=== PATIENT | male | born 1940 | race Caucasian/White ===

== ENCOUNTER 2016-08-01 15:33 | Inpatient (IN) | payer OTHER, MEDICARE ==
[~2016-08-01] VITALS: Ht 175.3 cm; Wt 87.0 kg
[~2016-08-01 15:33] MED LIST changes: -BUME1TAB PO; -CARV6.252 PO; -CMD5 PO; -FINA5TAB PO; -LEVO112T2 PO; -NEXAVAR PO; -ONDA4TAB46 PO; -ONDA4TAB65 PO; -POTA-74 PO; -POTA1POW PO; -SPIR25TA PO; -WARF5TAB90 PO
[2016-08-01] MEDS ORDERED: METHYLPREDNISOLONE IV 50 MG in SYRINGE 0 ML IV STA (15:51)
[2016-08-01] MEDS ORDERED: DiphenhydrAMINE HCL 50 MG/ML VIAL IV STA (15:51)
[2016-08-01] MEDS ORDERED: OPTIRAY 320 IV PRN (16:00)
[2016-08-01 16:08] LABS: BASO % 0.7 %; BASO ABS # 0.05 K/uL (0-0.2); COMPLETE YES; HEMATOCRIT 43.8 % (42-52); IG% 0.1 %; LYMPH % 19.9 %; MEAN CELL VOLUME 91.1 fL (80-100); MEAN CORPUSCULAR HEMOGLOBIN 32.2 pg (25-34); MEAN CORPUSCULAR HGB CONC 35.4 g/dl (32-36); MEAN PLATELET VOLUME 10.5 fL (7.4-10.4); NEUT % 58.3 %; PLATELET COUNT 192 K/uL (130-400); RED BLOOD COUNT 4.81 M/uL (4.7-6.1); WHITE BLOOD COUNT 7.02 K/uL (4.8-10.8)
--- NOTE | 2016-08-01 16:16 | DIAGNOSTIC IMAGING REPORT ---
CHEST ONE VIEW PORTABLE CLINICAL HISTORY: Atypical chest pain COMPARISON STUDY: 10/11/2013 FINDINGS: The heart is normal in size. There is no failure. There is a small right pleural effusion with associated right basilar airspace opacities likely atelectatic. No left pleural effusion is visualized. There is no pneumothorax.[ IMPRESSION: Interval development of a small right pleural effusion with associated right basilar airspace opacities, likely atelectatic. Electronically signed by: Felix Mckeon M.D. 08/01/2016 4:14 PM Dictated Date/Time: 08/01/2016 4:14 PM
[2016-08-01] MEDS ORDERED: NEXAVAR PO (16:23)
[2016-08-01 16:38] LABS: BLOOD UREA NITROGEN 14 mg/dl (7-18); BUN/CREATININE RATIO 15.5 (10-20); CALCIUM 8.4 mg/dl (8.5-10.1); CARBON DIOXIDE 27 mmol/L (21-32); CHLORIDE 102 mmol/L (98-107); CREATININE 0.91 mg/dl (0.60-1.40); GLUCOSE 134 mg/dl (70-99); POTASSIUM 3.5 mmol/L (3.5-5.1); SODIUM 139 mmol/L (136-145)
[2016-08-01 16:43] LABS: CKMB/CK RATIO 1.4 (0-3.0)
--- NOTE | 2016-08-01 18:06 | DIAGNOSTIC IMAGING REPORT ---
CHEST CTA for PULMONARY ARTERIES CT DOSE: HISTORY: Positive d-dimer. Short of breath. TECHNIQUE: Multiaxial CT images of the chest were performed following the intravenous administration of contrast to evaluate the pulmonary arteries. Maximal intensity projection images were also obtained. COMPARISON STUDY: Abdomen and pelvis CT 04/08/2026. FINDINGS: Normal caliber thoracic aorta with no evidence for dissection. The heart is normal in size. Trace pericardial fluid. Small to moderate right pleural effusion which is increased in size. There is a filling defect at the branch point of a left lower lobe segmental/subsegmental pulmonary artery consistent with a pulmonary embolus. The main pulmonary arteries are patent. There is also a few subsegmental pulmonary emboli within the right lower lobe. No hilar lymphadenopathy. A few prominent mediastinal lymph nodes which measure up to 8 mm in short axis diameter. Consolidation at the base of the right lower lobe favors compressive atelectasis from the pleural effusion. No pneumothorax. The left lung is clear. IMPRESSION: 1. Bilateral lower lobe pulmonary emboli as described above. 2. Jnwni-re-uioqiity right pleural effusion has increased in size. 3. Right lower lobe consolidation favors compressive atelectasis from the pleural effusion. 4. Please refer to the same day abdominal CT for further evaluation of the abdominal structures. Electronically signed by: Omi Rivera M.D. 08/01/2016 6:05 PM Dictated Date/Time: 08/01/2016 5:58 PM
[2016-08-01 19:54] LABS: PARTIAL THROMBOPLASTIN RATIO 1.2
[2016-08-01] MEDS ORDERED: HEPARIN IV LOW DOSE NO BOLUS STA (21:10)
[2016-08-01] MEDS ORDERED: BACLOFEN 10 MG TAB PO PRN (21:15)
[2016-08-01] MEDS ORDERED: ACETAMINOPHEN 325 MG TAB PO PRN (21:15)
[2016-08-01] MEDS ORDERED: LORAZEPAM 2 MG/ML 1 ML VIAL IV PRN (21:15)
[2016-08-01] MEDS ORDERED: HEPARIN IV LOW DOSE NO BOLUS SCH (21:15)
[2016-08-01] MEDS ORDERED: TRAMADOL HCL 50 MG TAB PO PRN (21:15)
[2016-08-01] MEDS ORDERED: MoRPHine SULFATE 4 MG/ML 1 ML CARP\\VIAL IV PRN (21:15)
[2016-08-01] MEDS ORDERED: NSS + 20MEQ KCL 1000ML 1,000 ML IV ONE ×2 (21:15→22:00)
[2016-08-01] MEDS ORDERED: HEPARIN 25000 UNIT/500 ML D5W ONE (21:21)
--- NOTE | 2016-08-01 22:11 | DIAGNOSTIC IMAGING REPORT ---
BILATERAL LOWER EXTREMITY VENOUS DOPPLER HISTORY: Bilateral leg pain COMPARISON STUDY: None. FINDINGS: There is slow flow throughout the bilateral lower extremity venous systems. No DVT within the right lower extremity. Linear echogenic stranding within the proximal left superficial femoral vein consistent with chronic deep vein thrombosis. This is nonocclusive. Remaining portions of the left lower extremity venous system are patent. IMPRESSION: 1. No DVT within the right lower extremity. 2. Linear echogenic stranding within the proximal left superficial femoral vein consistent with a chronic deep vein thrombosis. No acute DVT seen within the left lower extremity. Electronically signed by: Omi Rivera M.D. 08/01/2016 10:10 PM Dictated Date/Time: 08/01/2016 10:08 PM
--- NOTE | 2016-08-01 22:39 | EMERGENCY ROOM VISIT NOTE ---
History Report prepared by Aleksandar: Geraldine Joseph Under the Supervision of: Dr. Isidro Mcleod D.O. First contact with patient: 15:39 Chief Complaint: REFERRED BY DOCTOR Stated Complaint: MAY HAVE BLOOD CLOT IN LUNG History of Present Illness The patient is a 76 year old male who presents to the Emergency Room per PCP referral to be evaluated for an elevated D-dimer today. The patient notes that he has been feeling short of breath with exertion over the past 3 weeks. He feels well at rest. The patient is able to walk short distances without too much difficulty but notes he has difficulty breathing performing tasks like leaning over to tie his shoes. He is able to sleep laying flat. He also complains some increased leg swelling that he notices when he is wearing socks. Today, the patient had blood work in Dr. You's office with hematology/ oncology. He follows up with her because he has liver cancer and is currently on chemotherapy pills daily. This afternoon he was referred to the emergency room because his D-dimer was 1400. He is not on any blood thinners. No history of diabetes or heart disease. He does note a history of hypertension. He does not have a history of blood clots. The patient notes that he has had diarrhea which is a side effect of his chemotherapy. Pt denies headache, change in vision, fevers, chest pain with breathing, nausea, vomiting, diarrhea, pain with urination, and melena. Source of History: patient Onset: today Position: other (global) Symptom Intensity: D-dimer 1400 Quality: other (elevated D-dimer) Timing: constant Associated Symptoms: + SOB, No chest pain, No diarrhea, No fevers, No headache, No melena, No nausea, No urinary symptoms, No vomiting Note: Other symptoms: minimal leg swelling with socks Review of Systems See HPI for pertinent positives & negatives. A total of 10 systems reviewed and were otherwise negative. Past Medical & Surgical Medical Problems: (1) BPH (benign prostatic hyperplasia) (2) Dyslipidemia (3) Hemochromatosis (4) Hepatocellular carcinoma (5) HTN (hypertension) (6) Hypothyroidism (7) Pulmonary embolism Surgical Problems: (1) History of left knee replacement (2) History of resection of liver (3) History of total right knee replacement (4) S/P cataract surgery (5) S/P tonsillectomy Family History Cancer Hypertension Kidney stones Lung disease Social History Smoking Status: Former Smoker Alcohol Use: none Drug Use: none Marital Status: Housing Status: lives with family Occupation Status: retired Current/Historical Medications Scheduled Amlodipine (Norvasc), 5 MG PO BID Carvedilol (Coreg), 6.25 MG PO BID Finasteride (Proscar), 5 MG PO DAILY Levothyroxine Sodium (Synthroid), 112 MCG PO DAILY Lisinopril/Hctz (Zestoretic 20MG/12.5MG), 1 TABS PO DAILY Tamsulosin Hcl (Flomax), 0.4 MG PO DAILY [Nexavar], 400 MG PO BID Scheduled PRN Baclofen (Lioresal), 10 MG PO Q8 PRN for hiccups Allergies Coded Allergies: Iodinated Diagnostic Agents (Verified Allergy, Unknown, HIVES, 08/01/16) Physical Exam Vital Signs Date Time Temp Pulse Resp B/P Pulse Ox O2 Delivery O2 Flow Rate FiO2 08/01/16 21:05 88 16 162/85 93 Room Air 08/01/16 18:30 76 18 144/95 93 Room Air 08/01/16 17:31 76 25 165/98 93 Room Air 08/01/16 15:56 83 08/01/16 15:35 36.6 91 18 146/89 95 Room Air Physical Exam GENERAL: Sitting up in bed, alert, well appearing, well nourished, no distress, non-toxic EYE EXAM: normal conjunctiva OROPHARYNX: no exudate, no erythema, lips, buccal mucosa, and tongue normal and mucous membranes are moist NECK: supple, no nuchal rigidity, no adenopathy, non-tender LUNGS: Clear to auscultation. Normal chest wall mechanics HEART: no murmurs, S1 normal and S2 normal ABDOMEN: abdomen soft, non-tender, normo-active bowel sounds, palpable mass in the right upper quadrant, no rebound or guarding, large old incision over the right upper quadrant. BACK: Back is symmetrical on inspection and there is no deformity, no midline tenderness, no CVA tenderness. SKIN: no rashes and no bruising UPPER EXTREMITIES: upper extremities are grossly normal. LOWER EXTREMITIES: No pitting edema. Calves equal bilaterally. NEURO EXAM: Normal sensorium, cranial nerves II-XII grossly intact, normal speech, no gross weakness of arms, no gross weakness of legs. Medical Decision & Procedures ER Provider Diagnostic Interpretation: Results have been interpreted by the radiologist and reviewed by me. CHEST ONE VIEW PORTABLE CLINICAL HISTORY: Atypical chest pain COMPARISON STUDY: 10/11/2013 FINDINGS: The heart is normal in size. There is no failure. There is a small right pleural effusion with associated right basilar airspace opacities likely atelectatic. No left pleural effusion is visualized. There is no pneumothorax.[ IMPRESSION: Interval development of a small right pleural effusion with associated right basilar airspace opacities, likely atelectatic. Electronically signed by: Felix Mckeon M.D. 08/01/2016 4:14 PM Dictated Date/Time: 08/01/2016 4:14 PM CHEST CTA for PULMONARY ARTERIES CT DOSE: HISTORY: Positive d-dimer. Short of breath. TECHNIQUE: Multiaxial CT images of the chest were performed following the intravenous administration of contrast to evaluate the pulmonary arteries. Maximal intensity projection images were also obtained. COMPARISON STUDY: Abdomen and pelvis CT 04/08/2026. FINDINGS: Normal caliber thoracic aorta with no evidence for dissection. The heart is normal in size. Trace pericardial fluid. Small to moderate right pleural effusion which is increased in size. There is a filling defect at the branch point of a left lower lobe segmental/subsegmental pulmonary artery consistent with a pulmonary embolus. The main pulmonary arteries are patent. There is also a few subsegmental pulmonary emboli within the right lower lobe. No hilar lymphadenopathy. A few prominent mediastinal lymph nodes which measure up to 8 mm in short axis diameter. Consolidation at the base of the right lower lobe favors compressive atelectasis from the pleural effusion. No pneumothorax. The left lung is clear. IMPRESSION: 1. Bilateral lower lobe pulmonary emboli as described above. 2. Ycaxk-km-fyrjqksu right pleural effusion has increased in size. 3. Right lower lobe consolidation favors compressive atelectasis from the pleural effusion. 4. Please refer to the same day abdominal CT for further evaluation of the abdominal structures. Electronically signed by: Omi Rivera M.D. 08/01/2016 6:05 PM Dictated Date/Time: 08/01/2016 5:58 PM Laboratory Results 08/01/16 15:45 Red Blood Count 4.81, Mean Corpuscular Volume 91.1, Mean Corpuscular Hemoglobin 32.2, Mean Corpuscular Hemoglobin Concent 35.4, Mean Platelet Volume 10.5, Neutrophils (%) (Auto) 58.3, Lymphocytes (%) (Auto) 19.9, Monocytes (%) (Auto) 10.0, Eosinophils (%) (Auto) 11.0, Basophils (%) (Auto) 0.7, Neutrophils # (Auto ) 4.09, Lymphocytes # (Auto) 1.40, Monocytes # (Auto) 0.70, Eosinophils # (Auto ) 0.77, Basophils # (Auto) 0.05 08/01/16 15:45 Test 08/01/16 15:45 White Blood Count 7.02 K/uL (4.8-10.8) Red Blood Count 4.81 M/uL (4.7-6.1) Hemoglobin 15.5 g/dL (14.0-18.0) Hematocrit 43.8 % (42-52) Mean Corpuscular Volume 91.1 fL (80-100) Mean Corpuscular Hemoglobin 32.2 pg (25-34) Mean Corpuscular Hemoglobin Concent 35.4 g/dl (32-36) Platelet Count 192 K/uL (130-400) Mean Platelet Volume 10.5 fL (7.4-10.4) Neutrophils (%) (Auto) 58.3 % Lymphocytes (%) (Auto) 19.9 % Monocytes (%) (Auto) 10.0 % Eosinophils (%) (Auto) 11.0 % Basophils (%) (Auto) 0.7 % Neutrophils # (Auto) 4.09 K/uL (1.4-6.5) Lymphocytes # (Auto) 1.40 K/uL (1.2-3.4) Monocytes # (Auto) 0.70 K/uL (0.11-0.59) Eosinophils # (Auto) 0.77 K/uL (0-0.5) Basophils # (Auto) 0.05 K/uL (0-0.2) RDW Standard Deviation 47.2 fL (36.4-46.3) RDW Coefficient of Variation 14.1 % (11.5-14.5) Immature Granulocyte % (Auto) 0.1 % Immature Granulocyte # (Auto) 0.01 K/uL (0.00-0.02) Activated Partial Thromboplast Time 32.4 SECONDS (21.0-31.0) Partial Thromboplastin Ratio 1.2 Anion Gap 10.0 mmol/L (3-11) Est Creatinine Clear Calc Drug Dose 80.9 ml/min Estimated GFR () 95.9 Estimated GFR (Non- 82.7 BUN/Creatinine Ratio 15.5 (10-20) Calcium Level 8.4 mg/dl (8.5-10.1) Magnesium Level 2.0 mg/dl (1.8-2.4) Total Bilirubin 1.3 mg/dl (0.2-1) Direct Bilirubin 0.5 mg/dl (0-0.2) Aspartate Amino Transf (AST/SGOT) 112 U/L (15-37) Alanine Aminotransferase (ALT/SGPT) 43 U/L (12-78) Alkaline Phosphatase 190 U/L (45-117) Total Creatine Kinase 139 U/L (39-308) Creatine Kinase MB 2.0 ng/ml (0.5-3.6) Creatine Kinase MB Ratio 1.4 (0-3.0) Troponin I < 0.015 ng/ml (0-0.045) Total Protein 7.4 gm/dl (6.4-8.2) Albumin 3.2 gm/dl (3.4-5.0) Laboratory results per my review. Medications Administered Medications (Trade) Dose Ordered Sig/Rad Route Start Time Stop Time Status Last Admin Dose Admin Methylprednisolone Sodium Succinate/ Syringe (Solu-Medrol IV/ Syringe) 0.8 ml @ 1.5 mls/min NOW STAT IV 08/01/16 15:51 08/01/16 15:54 DC 08/01/16 16:09 1.5 MLS/MIN Diphenhydramine HCl (Benadryl Inj) 25 mg NOW STAT IV 08/01/16 15:51 08/01/16 15:54 DC 08/01/16 16:09 25 MG ECG Indication: SOB/dyspnea Rate (beats per minute): 85 Rhythm: sinus rhythm Findings: Q waves (Septal), left axis deviation Comparison ECG Date: 04/08/16 Change: no significant change ED Course ED COURSE: Vital signs were reviewed and showed normal vitals. The patients medical record was reviewed The above diagnostic studies were performed and reviewed. ED treatments and interventions as stated above. 1543: The patient was evaluated in room A4. A complete history and physical examination was performed. 1551: Ordered Benadryl Inj 25 mg IV, Methylprednisolone Sodium Succinate 50 mg/ Syringe 0.8 ml @ 1.5 mls/min IV. 1650: I reassessed the patient and updated him on results so far. 183: Upon reevaluation, the patient is resting comfortably.I discussed my findings with the patient and he understands and agrees with the treatment plan. Based on the patients age, coexisting illnesses, exam and lab findings the decision to treat as an inpatient was made. The patient remained stable while under my care. The patient will be evaluated for further management. 184: I discussed the case with Dr. Marjan Trujillo. 1847: I discussed the case with Dr. Gunn - Vascular Surgery. Medical Decision Differential diagnoses includes but is not limited to pneumonia, bronchitis, COPD/Asthma exacerbation, pneumothorax, pulmonary embolism, congestive heart failure, acute coronary syndrome Patient is a 76-year-old male who presents the ER referred in by Dr. You for a CT PE with a positive d-dimer and shortness of breath. Patient has not complaints at this time. He does have known hepatocellular carcinoma. CT PE was performed and did show PEs and the CT of his abdomen was performed as well as he was going to have this done tomorrow as an outpatient. CT of the abdomen showed a large liver mass that may be eroding into the IVC. It also showed a resolved which are personnel hematoma. I discussed the case with Dr. Gunn as with that retroperitoneal hematoma although it resolved would put him at a higher risk for bleeding. Velia said that since there is possible involvement of the IVC he would not place a filter. I then discussed the case with internal medicine again for admission. I did not put him on any anti- correlation at this time as that retroperitoneal bleed although it resolved would put him at a high risk. Patient was in its internal medicine for PEs along with known liver cancer with possible involvement of the IVC. Consults Time Called: 1831 Consulting Physician: Dr. Marjan Dunne Hospitalist Returned Call: [phone] I discussed the case with him. Additional Consults: Time Called: 1845 Consulted Physician: Dr. Gunn - Vascular Surgery Returned Call: [phone] Additional Comments: I discussed the case with him. Impression Primary Impression: Pulmonary emboli Additional Impressions: Resolved retroperitoneal hematoma Liver cancer Scribe Attestation The scribe's documentation has been prepared under my direction and personally reviewed by me in its entirety. I confirm that the note above accurately reflects all work, treatment, procedures, and medical decision making performed by me. Departure Information Dispostion Being Evaluated By Hospitalist Patient Instructions My [facility] Problem Qualifiers Primary Impression: Pulmonary emboli Pulmonary embolism type: other Chronicity: acute Acute cor pulmonale presence: without acute cor pulmonale Qualified Codes: I26.99 - Other pulmonary embolism without acute cor pulmonale Additional Impressions: Liver cancer Liver malignancy type: hepatocellular carcinoma Qualified Codes: C22.0 - Liver cell carcinoma
[2016-08-01] MEDS ORDERED: LORAZEPAM INJ 0.5 MG in SYRINGE 0.75 ML IV PRN (23:00)
[2016-08-01 23:44] VITALS: BP 147/88; PULSE 86; TEMP 36.6; O2SAT 92; Ht 175.3 cm; Wt 87.0 kg
[2016-08-02] VITALS (7 sets, daily range): BP systolic 126–171; BP diastolic 74–88; PULSE 63–74; TEMP 36.4–36.7; O2SAT 92–95
--- NOTE | 2016-08-02 00:28 | HISTORY & PHYSICAL EXAMINATION ---
DATE OF ADMISSION: 08/01/2016 PRIMARY CARE DOCTOR: Dr. Miller. CHIEF COMPLAINT: Shortness of breath. HISTORY OF PRESENT ILLNESS: Medical history significant for metastatic hepatocellular carcinoma sp partial hepatic lobectomy 08/[address] [facility], ongoing chemotherapy, hemochromatosis, hypertension, past tobacco abuse, arthritis, history of retroperitoneal hemorrhage. Recent confinement 03/2016 for retroperitoneal hemorrhage. Hg improved wo intervention. Unclear etiology or source at that time. Patient subsequently discharged home. The last few weeks patient noted increasing shortness of breath, occasional pleuritic chest discomfort and leg discomfort. No fever, no chills, no cough symptoms. The patient sent to the Emergency Room. MEDICAL HISTORY: As above. His oncologist is Dr. You, [facility] Oncology. Recent imaging from the office 06/2016, CT showed metastatic hepatocellular carcinoma throughout the liver, decreasing size of mixed density right suprarenal mass, possibly representing liver mets, hemorrhagic adrenal mass, hemorrhagic retroperitoneal implant inseparable from right kidney, microscopic invasion not excluded. Metastatic implants anterior abdominal wall and subcutaneous tissue, increasing size. Hepatic veins and intrahepatic IVC are not well seen with mass effect from adjacent tumors with invasion of vessels. SURGERIES: Liver resection, knee replacement, cataract surgery, tonsillectomy. HOME MEDICATIONS: Include triamcinolone, Zofran, amlodipine, Nexavar, diphenhydramine, baclofen, lisinopril/HCTZ, levothyroxine, finasteride, carvedilol, tamsulosin. ALLERGIES: IV DYE. FAMILY HISTORY: Hypertension. PERSONAL AND SOCIAL HISTORY: Past tobaccos use. No chronic intake of alcohol. 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 REVIEW OF SYSTEMS: As per HPI, all others negative. PHYSICAL EXAMINATION: VITAL SIGNS: Blood pressure was noted to be 146/89, pulse rate 90, RR 18, temp 36.6, sats 98 on room air. GENERAL: Noted to be slightly anxious, no respiratory distress. SKIN: Normal color. HEENT: [place] palpebral conjunctivae. Dry mucosa. Partial alopecia. NECK: No JVD. Supple. CHEST: Clear to auscultation. HEART: Regular rate and rhythm. ABDOMEN: Soft. EXTREMITIES: No edema, no tenderness. NEUROLOGIC: No gross focality. LABORATORY DATA: Hemoglobin 15.5, hematocrit 43.2, white cell count 7, platelets 192. Sodium 139, potassium 3.5, chloride 102, CO2 27, BUN 40, creatinine 0.9, glucose 134. abn ddimer trop 0 CTA showed bilateral lower lobe pulmonary emboli, small to moderate right pleural effusion. Venous Dopplers showed right lower extremity, chronic DVT. CT abdomen and pelvis, liver completely replaced by multiple hypervascular hepatic masses consistent with hepatocellular carcinoma, dominant hepatic mass within right hepatic lobe resulting in severe narrowing with possible invasion into the intrahepatic IVC, multiple new soft tissue nodules right anterior abdominal wall consistent with metastatic foci, significant improvement and resolution of right perinephric retroperitoneal hemorrhage. ASSESSMENT: 1. Acute pulmonary embolism likely related to malignancy hx metastatic hepatocellular carcinoma sp surgery ongoing chemotherapy. some evidence of disease progression on recent imaging 2. hypertension, stable. 3. Hx hemochromatosis. 4. History of right retroperitoneal hemorrhage. (03/2016) In retrospect, bleed was 2 to poss R suprarenal/adrenal mets on review of recent outpx CT Hg currently WNL. 5. Past tobacco abuse. PLAN: PCU. low dose IV heparin for now initiate Coumadin bridge tx w/ goal INR 2-3 tomorrow if Hg stable I sought the advice of Dr. Celina Tanner (General Surgery) and Dr. Donovan ( Urology) over the phone w/ reference to anticoagulation and px's hx of retroperitoneal bleed. Drs. Tanner and Venus saw px in consultation during his confinement last year. They both agree that anticoagulation is necessary given px current's circumstances and should not be precluded by bleed hx. Patient and family made have been made aware of the need for anticoagulation and potential for re-bleed. Px and family understand and accept risks. DVT prophylaxis : IV Heparin-Coumadin (INR goal 2-3) bridge tx. Full code. MTDD
[2016-08-02 03:54] LABS: BASO % 0.3 %; BASO ABS # 0.01 K/uL (0-0.2); COMPLETE YES; HEMATOCRIT 39.5 % (42-52); IG% 0.3 %; LYMPH % 28.8 %; LYMPH ABS # 1.04 K/uL (1.2-3.4); MEAN CELL VOLUME 90.2 fL (80-100); MEAN CORPUSCULAR HEMOGLOBIN 31.5 pg (25-34); MEAN CORPUSCULAR HGB CONC 34.9 g/dl (32-36); MEAN PLATELET VOLUME 10.7 fL (7.4-10.4); MONO % 5.5 %; NEUT % 65.1 %; PLATELET COUNT 172 K/uL (130-400); RED BLOOD COUNT 4.38 M/uL (4.7-6.1); WHITE BLOOD COUNT 3.61 K/uL (4.8-10.8)
[2016-08-02 04:12] LABS: BLOOD UREA NITROGEN 14 mg/dl (7-18); CALCIUM 8.2 mg/dl (8.5-10.1); CARBON DIOXIDE 27 mmol/L (21-32); CHLORIDE 104 mmol/L (98-107); CREATININE 0.76 mg/dl (0.60-1.40); GLUCOSE 143 mg/dl (70-99); POTASSIUM 3.4 mmol/L (3.5-5.1); SODIUM 140 mmol/L (136-145)
[2016-08-02] MEDS ORDERED: POTASSIUM CHLORIDE 10 MEQ TABCR PO STA (04:35)
[2016-08-02] MEDS: LEVOTHYROXINE 112 MCG TAB PO SCH (05:56)
[2016-08-02 06:00] LABS: MAGNESIUM 1.9 mg/dl (1.8-2.4)
[2016-08-02] MEDS ORDERED: LISINOPRIL 20 MG TAB PO SCH (09:00)
[2016-08-02] MEDS: CARVEDILOL 6.25 MG TAB PO SCH ×2 (09:16→21:07)
[2016-08-02] MEDS: TAMSULOSIN HCL 0.4 MG CAP PO SCH (09:16)
[2016-08-02] MEDS: AMLODIPINE BESYLATE 5 MG TAB PO SCH ×2 (09:17→21:07)
[2016-08-02] MEDS: FINASTERIDE 5 MG TAB PO SCH (09:17)
[2016-08-02 09:53] LABS: INR 1.2 (0.9-1.1); PROTHROMBIN TIME (PATIENT) 13.2 SECONDS (9.0-12.0)
--- NOTE | 2016-08-02 11:28 | Hospitalist Progress Note ---
Hospitalist Progress Note Date of Service Aug 02, 2016. Subjective Patient seen and examined. Reports he is feeling well. Ambulating in his room without difficulty. He denies chest pain and shortness of breath. No abdominal pain or nausea. Objective Vital Signs Date Time Temp Pulse Resp B/P Pulse Ox O2 Delivery O2 Flow Rate FiO2 08/02/16 08:10 Room Air 08/02/16 07:33 36.6 65 16 171/88 95 Room Air 08/02/16 04:54 36.4 72 18 147/82 94 Room Air 08/02/16 04:00 Room Air 08/01/16 23:44 36.6 86 19 147/88 92 Room Air 08/01/16 21:05 88 16 162/85 93 Room Air 08/01/16 18:30 76 18 144/95 93 Room Air 08/01/16 17:31 76 25 165/98 93 Room Air 08/01/16 15:56 83 08/01/16 15:35 36.6 91 18 146/89 95 Room Air Physical Exam General Appearance: no apparent distress Eyes: normal inspection ENT: hearing grossly normal Neck: supple, no JVD Respiratory/Chest: no respiratory distress, + decreased breath sounds Cardiovascular: regular rate, rhythm, no edema Abdomen: normal bowel sounds, non tender, + distended (softly) Neurologic/Psychiatric: no motor/sensory deficits, alert, normal mood/affect, oriented x 3 Skin: normal color, warm/dry Laboratory Results Last 24 Hours Test 08/01/16 15:45 08/02/16 03:45 White Blood Count 7.02 K/uL 3.61 K/uL Red Blood Count 4.81 M/uL 4.38 M/uL Hemoglobin 15.5 g/dL 13.8 g/dL Hematocrit 43.8 % 39.5 % Mean Corpuscular Volume 91.1 fL 90.2 fL Mean Corpuscular Hemoglobin 32.2 pg 31.5 pg Mean Corpuscular Hemoglobin Concent 35.4 g/dl 34.9 g/dl Platelet Count 192 K/uL 172 K/uL Mean Platelet Volume 10.5 fL 10.7 fL Neutrophils (%) (Auto) 58.3 % 65.1 % Lymphocytes (%) (Auto) 19.9 % 28.8 % Monocytes (%) (Auto) 10.0 % 5.5 % Eosinophils (%) (Auto) 11.0 % 0.0 % Basophils (%) (Auto) 0.7 % 0.3 % Neutrophils # (Auto) 4.09 K/uL 2.35 K/uL Lymphocytes # (Auto) 1.40 K/uL 1.04 K/uL Monocytes # (Auto) 0.70 K/uL 0.20 K/uL Eosinophils # (Auto) 0.77 K/uL 0.00 K/uL Basophils # (Auto) 0.05 K/uL 0.01 K/uL RDW Standard Deviation 47.2 fL 46.3 fL RDW Coefficient of Variation 14.1 % 13.9 % Immature Granulocyte % (Auto) 0.1 % 0.3 % Immature Granulocyte # (Auto) 0.01 K/uL 0.01 K/uL Activated Partial Thromboplast Time 32.4 SECONDS 50.7 SECONDS Partial Thromboplastin Ratio 1.2 2.0 Sodium Level 139 mmol/L 140 mmol/L Potassium Level 3.5 mmol/L 3.4 mmol/L Chloride Level 102 mmol/L 104 mmol/L Carbon Dioxide Level 27 mmol/L 27 mmol/L Anion Gap 10.0 mmol/L 9.0 mmol/L Blood Urea Nitrogen 14 mg/dl 14 mg/dl Creatinine 0.91 mg/dl 0.76 mg/dl Est Creatinine Clear Calc Drug Dose 80.9 ml/min 96.9 ml/min Estimated GFR () 95.9 104.2 Estimated GFR (Non- 82.7 89.9 BUN/Creatinine Ratio 15.5 18.0 Random Glucose 134 mg/dl 143 mg/dl Calcium Level 8.4 mg/dl 8.2 mg/dl Magnesium Level 2.0 mg/dl 1.9 mg/dl Total Bilirubin 1.3 mg/dl Direct Bilirubin 0.5 mg/dl Aspartate Amino Transf (AST/SGOT) 112 U/L Alanine Aminotransferase (ALT/SGPT) 43 U/L Alkaline Phosphatase 190 U/L Total Creatine Kinase 139 U/L Creatine Kinase MB 2.0 ng/ml Creatine Kinase MB Ratio 1.4 Troponin I < 0.015 ng/ml < 0.015 ng/ml Total Protein 7.4 gm/dl Albumin 3.2 gm/dl 2.9 gm/dl Prothrombin Time 13.2 SECONDS Prothromb Time International Ratio 1.2 Assessment and Plan BILATERAL PULMONARY EMBOLISM - admitted to tele - likely due to underlying malignancy - patient with history of retroperitoneal bleed 03/2016 with resolution on most recent CT scan - patient started on low dose IV heparin, hgb has remained stable - continue check H/H q6h - would consider transition to SQ Lovenox due to patient's underlying malignancy , however due to recent retroperitoneal bleed and hypervascular liver lesions will use Coumadin for ease of reversibility in the event of re-bleeding - case discussed with Dr. You - will continue IV heparin for 24 hours with close monitoring of H/H with transition to Coumadin RIGHT PLEURAL EFFUSION - will get US to quantify effusion HX METASTATIC HEPATOCELLULAR CARCINOMA - follows with Dr. You - continue oral Nexavar HEMOCHROMATOSIS - receives phlebotomy - hgb stable HTN - BPs intermittently elevated - continue amlodipine, carvedilol, and lisinopril - d/c IVF, resume HCTZ HYPOTHYROIDISM - continue levothyroxine DVT PROPHYLAXIS - IV Heparin
[2016-08-02] MEDS ORDERED: HYDROCHLOROTHIAZIDE 25 MG TAB PO ONE (11:30)
[2016-08-02 13:13] LABS: HEMATOCRIT 41.6 % (42-52)
--- NOTE | 2016-08-02 15:12 | DIAGNOSTIC IMAGING REPORT ---
ULTRASOUND OF THE PLEURAL SPACES CLINICAL HISTORY: Right pleural effusion. COMPARISON STUDY: Chest CT dated to. FINDINGS: Real-time grayscale sonography of the pleural spaces is performed to assess pleural effusions. There is a small right pleural effusion with associated atelectasis. This has an estimated volume of 482 cc. No left pleural effusion is identified. IMPRESSION: Small right pleural effusion with an estimated volume of 482 cc. This was not marked for bedside thoracentesis due to lack of an appropriate window. Electronically signed by: Mik Leone M.D. 08/02/2016 3:10 PM Dictated Date/Time: 08/02/2016 3:09 PM
[2016-08-02] MEDS: NEXAVAR PO SCH (18:54)
[2016-08-02] MEDS: HEPARIN 25,000 UNIT/500ML D5W 500 ML IV PRN (21:15)
[2016-08-03] VITALS (7 sets, daily range): BP systolic 116–152; BP diastolic 66–88; PULSE 66–77; TEMP 36.3–36.7; O2SAT 92–95
[2016-08-03 00:31] LABS: HEMATOCRIT 38.7 % (42-52)
[2016-08-03 04:52] LABS: BASO % 1.8 %; BASO ABS # 0.09 K/uL (0-0.2); COMPLETE YES; EOS % 12.3 %; HEMATOCRIT 39.5 % (42-52); IG% 0.2 %; LYMPH % 28.5 %; LYMPH ABS # 1.46 K/uL (1.2-3.4); MEAN CELL VOLUME 91.4 fL (80-100); MEAN CORPUSCULAR HEMOGLOBIN 31.7 pg (25-34); MEAN CORPUSCULAR HGB CONC 34.7 g/dl (32-36); MEAN PLATELET VOLUME 10.4 fL (7.4-10.4); MONO % 7.4 %; NEUT % 49.8 %; PLATELET COUNT 157 K/uL (130-400); RED BLOOD COUNT 4.32 M/uL (4.7-6.1); WHITE BLOOD COUNT 5.13 K/uL (4.8-10.8)
[2016-08-03 05:13] LABS: PARTIAL THROMBOPLASTIN RATIO 2.1
[2016-08-03 05:15] LABS: BUN/CREATININE RATIO 16.2 (10-20); CALCIUM 8.3 mg/dl (8.5-10.1); CREATININE 0.84 mg/dl (0.60-1.40); POTASSIUM 3.7 mmol/L (3.5-5.1)
[2016-08-03 05:18] LABS: PHOSPHORUS 2.1 mg/dl (2.5-4.9)
[2016-08-03] MEDS: LEVOTHYROXINE 112 MCG TAB PO SCH (06:37)
[2016-08-03] MEDS: NEXAVAR PO SCH ×2 (06:38→18:40)
[2016-08-03] MEDS: CARVEDILOL 6.25 MG TAB PO SCH ×2 (08:37→20:41)
[2016-08-03] MEDS: AMLODIPINE BESYLATE 5 MG TAB PO SCH ×2 (08:38→20:39)
[2016-08-03] MEDS: LISINOPRIL/HCTZ 20/12.5MG TAB PO SCH (08:38)
[2016-08-03] MEDS: TAMSULOSIN HCL 0.4 MG CAP PO SCH (08:38)
[2016-08-03] MEDS: FINASTERIDE 5 MG TAB PO SCH (08:39)
[2016-08-03] MEDS ORDERED: POTASSIUM PHOS 3 MMOL/1 ML INFUSION IV ONE (08:45)
[2016-08-03] MEDS ORDERED: POTASSIUM PHOSPHATE INJ 15 MMOL in SODIUM CHLORIDE 0.9% 250ML 250 ML IV ONE (09:00)
--- NOTE | 2016-08-03 15:25 | ECHOCARDIOGRAM REPORT ---
*NOTICE TO RECEIVING DEMOCRAT AGENCY This information is strictly Confidential and protected under [place] law. [place] law prohibits you from making any further disclosure of this information unless further disclosure is expressly permitted by the written consent of the person to whom it pertains or is authorized by law. A general authorization for the release of medical or other information is not sufficient for this purpose. Hospital accepts no responsibility if the information is made available to any other person, INCLUDING THE PATIENT. Interpretation Summary * Name: ELOY MAXWELL Study Date: 08/03/2016 07:02 AM BP: 149/87 mmHg * Patient Location: .[facility]\S\N287\S\2 HR: 68 * : 1940 (M/d/yyyy) Gender: Male Height: 69 in * Age: 76 yrs Ethnicity: [place] Weight: 201 lb * Ordering Physician: Janet Hamm * Performed By: Ifeoma Musa * * Reason For Study: PE * BSA: 2.1 m2 * -- Conclusions -- * The left ventricle is normal in size. * Left ventricular systolic function is normal. * Ejection Fraction = 65-70%. * The left ventricular wall motion is normal. * There is mild concentric left ventricular hypertrophy. * Grade I diastolic dysfunction, (abnormal relaxation pattern). * The right ventricle is normal in size and function. * Trivial valvular regurgitation. Procedure Details * A complete two-dimensional transthoracic echocardiogram was performed (2D, M-mode, Doppler and color flow Doppler). Left Ventricle * The left ventricle is normal in size. * There is mild concentric left ventricular hypertrophy. * Ejection Fraction = 65-70%. * Left ventricular systolic function is normal. * The left ventricular wall motion is normal. Right Ventricle * The right ventricle is normal in size and function. * There is normal right ventricular wall thickness. * The right ventricular systolic function is normal. Atria * The left atrial size is normal. * Right atrial size is normal. * The interatrial septum is intact with no evidence for an atrial septal defect. Mitral Valve * The mitral valve is normal in structure and function. * There is no mitral valve stenosis. * There is trace mitral regurgitation. Tricuspid Valve * The tricuspid valve is normal in structure and function. * There is trace tricuspid regurgitation. Aortic Valve * The aortic valve is normal in structure and function. * Trace aortic regurgitation. Pulmonic Valve * The pulmonic valve is normal in structure and function. * There is no pulmonic valvular regurgitation. Great Vessels * The aortic root is normal size. * Aortic arch of normal dimension. * No obvious dissection could be visualized. * The pulmonary artery is normal size. Pericardium/Pleural * There is no pericardial effusion. Left Ventricular Diastolic Function * Grade I diastolic dysfunction, (abnormal relaxation pattern). MMode 2D Measurements and Calculations IVSd 1.4 cm IVSs 1.7 cm LVIDd 3.6 cm LVIDs 2.3 cm LVPWd 1.0 cm LVPWs 2.1 cm IVS/LVPW 1.3 FS 35.5 % EDV(Teich) 55.2 ml ESV(Teich) 18.8 ml EF(Teich) 65.9 % EDV(cubed) 47.5 ml ESV(cubed) 12.7 ml EF(cubed) 73.2 % % IVS thick 25.5 % % LVPW thick 102.6 % LV mass(C)d 144.8 grams LV mass(C)dI 69.9 grams/m\S\2 LV mass(C)s 185.6 grams LV mass(C)sI 89.7 grams/m\S\2 CO(Teich) 2.4 l/min CI(Teich) 1.2 l/min/m\S\2 SV(Teich) 36.4 ml SI(Teich) 17.6 ml/m\S\2 CO(cubed) 2.3 l/min CI(cubed) 1.1 l/min/m\S\2 SV(cubed) 34.8 ml SI(cubed) 16.8 ml/m\S\2 ACS 0.90 cm LA dimension 4.4 cm asc Aorta Diam 3.6 cm LVOT diam 2.0 cm LVOT area 3.2 cm\S\2 LVAd ap4 27.6 cm\S\2 LVLd ap4 8.1 cm EDV(MOD-sp4) 77.0 ml LVAs ap4 14.4 cm\S\2 LVLs ap4 6.6 cm ESV(MOD-sp4) 26.0 ml EF(MOD-sp4) 66.2 % LVAd ap2 24.7 cm\S\2 LVLd ap2 7.6 cm EDV(MOD-sp2) 66.0 ml LVAs ap2 12.5 cm\S\2 LVLs ap2 6.1 cm ESV(MOD-sp2) 23.0 ml EF(MOD-sp2) 65.2 % CO(MOD-sp4) 3.4 l/min CI(MOD-sp4) 1.6 l/min/m\S\2 SV(MOD-sp4) 51.0 ml SI(MOD-sp4) 24.6 ml/m\S\2 CO(MOD-sp2) 2.8 l/min CI(MOD-sp2) 1.4 l/min/m\S\2 SV(MOD-sp2) 43.0 ml SI(MOD-sp2) 20.8 ml/m\S\2 Doppler Measurements and Calculations MV E max francisco 77.5 cm/sec MV A max francisco 87.9 cm/sec MV E/A 0.88 MV V2 max 109.2 cm/sec MV max PG 4.8 mmHg MV V2 mean 64.0 cm/sec MV mean PG 1.8 mmHg MV V2 VTI 30.3 cm MVA(VTI) 2.9 cm\S\2 MV dec time 0.20 sec Ao V2 max 134.7 cm/sec Ao max PG 7.3 mmHg Ao max PG (full) 1.3 mmHg RANI(V,A) 2.9 cm\S\2 RANI(V,D) 2.9 cm\S\2 LV V1 max PG 5.9 mmHg LV V1 mean PG 3.4 mmHg LV V1 max 121.7 cm/sec LV V1 mean 86.5 cm/sec LV V1 VTI 27.7 cm MR max francisco 403.9 cm/sec MR max PG 69.0 mmHg SV(LVOT) 89.3 ml SI(LVOT) 43.1 ml/m\S\2 PA V2 max 76.5 cm/sec PA max PG 2.3 mmHg
--- NOTE | 2016-08-03 16:03 | Progress Note ---
Medicine Progress Note Date & Time of Visit: Aug 03, 2016 at 15:48. Subjective Pt was seen and examined Sitting in bed very comfortable with no distress with daughter at bedside Pt said that he feels fine he denies any chest pain, palpitation, dizziness and sob Pt had been walking in the hallway with no discomfort Objective Last 8 Hrs Date Time Temp Pulse Resp B/P Pulse Ox O2 Delivery O2 Flow Rate FiO2 08/03/16 15:04 36.7 66 20 116/66 95 08/03/16 12:00 Room Air 08/03/16 11:18 36.6 77 18 130/79 95 08/03/16 08:00 Room Air Physical Exam: General- Very pleasant, with no distress Head- atraumatic Eyes- PERRL, EOMI ENT- oropharynx clear Neck- supple, no JVD Lungs- Poor air entry Heart- regular rhythm; no murmur Abdomen- normal bowel sounds, soft Extremities-no calf tenderness Neuro- alert, oriented, PERRL, EOMI Skin- warm & dry Laboratory Results: Last 24 Hours Test 08/02/16 18:13 08/03/16 00:25 08/03/16 04:44 Hemoglobin 14.1 g/dL 13.7 g/dL 13.7 g/dL Hematocrit 40.0 % 38.7 % 39.5 % White Blood Count 5.13 K/uL Red Blood Count 4.32 M/uL Mean Corpuscular Volume 91.4 fL Mean Corpuscular Hemoglobin 31.7 pg Mean Corpuscular Hemoglobin Concent 34.7 g/dl Platelet Count 157 K/uL Mean Platelet Volume 10.4 fL Neutrophils (%) (Auto) 49.8 % Lymphocytes (%) (Auto) 28.5 % Monocytes (%) (Auto) 7.4 % Eosinophils (%) (Auto) 12.3 % Basophils (%) (Auto) 1.8 % Neutrophils # (Auto) 2.56 K/uL Lymphocytes # (Auto) 1.46 K/uL Monocytes # (Auto) 0.38 K/uL Eosinophils # (Auto) 0.63 K/uL Basophils # (Auto) 0.09 K/uL RDW Standard Deviation 47.7 fL RDW Coefficient of Variation 14.1 % Immature Granulocyte % (Auto) 0.2 % Immature Granulocyte # (Auto) 0.01 K/uL Activated Partial Thromboplast Time 53.5 SECONDS Partial Thromboplastin Ratio 2.1 Sodium Level 141 mmol/L Potassium Level 3.7 mmol/L Chloride Level 103 mmol/L Carbon Dioxide Level 30 mmol/L Anion Gap 8.0 mmol/L Blood Urea Nitrogen 14 mg/dl Creatinine 0.84 mg/dl Est Creatinine Clear Calc Drug Dose 86.2 ml/min Estimated GFR () 100.0 Estimated GFR (Non- 86.3 BUN/Creatinine Ratio 16.2 Random Glucose 106 mg/dl Calcium Level 8.3 mg/dl Phosphorus Level 2.1 mg/dl Total Bilirubin 1.1 mg/dl Direct Bilirubin 0.5 mg/dl Aspartate Amino Transf (AST/SGOT) 85 U/L Alanine Aminotransferase (ALT/SGPT) 37 U/L Alkaline Phosphatase 147 U/L Total Protein 6.3 gm/dl Albumin 2.8 gm/dl Assessment & Plan BILATERAL PULMONARY EMBOLISM - Mostly due to underlying malignancy - history of retroperitoneal bleed 03/2016 with resolution on most recent CT scan - would consider transition to SQ Lovenox due to patient's underlying malignancy , however due to recent retroperitoneal bleed and hypervascular liver lesions will use Coumadin for ease of reversibility in the event of re-bleeding. I again discussed the risk of anticoagulant with the patient and his daughter because due to his recent retroperitoneal bleed and hypervascular hepatic mass that put patient at risk for bleeding. Pt understands why we choose the coumadin over the lovenox, in case there is bleeding that we can reverse it easily. -Continue IV heparin drip, will start coumadin 5 mg today case discussed with Dr. Bird Hematology that recommended coumadin. -will continue monitor h/h and INR closely - B/L doppler u/s of lower extremity was negative for DVT - I don't think pt will benefit from IVC because doppler show no evidence for DVT - will discuss case with Vascular surgery Dr. Gunn for possible IVC filter - Will keep INR goal btw 2-2.5 RIGHT PLEURAL EFFUSION - US showed Small right pleural effusion with an estimated volume of 482 cc. -Asymptomatic HX METASTATIC HEPATOCELLULAR CARCINOMA - follows with Dr. You - continue oral Nexavar HEMOCHROMATOSIS - receives phlebotomy - hgb stable HTN -Continue monitor BP - continue amlodipine, carvedilol, and lisinopril - Stable HYPOTHYROIDISM - continue levothyroxine DVT PROPHYLAXIS - IV Heparin drip/Coumadin CODE STATUS FULL CODE Current Inpatient Medications: Current Inpatient Medications Medications (Trade) Dose Ordered Sig/Rad Route Start Time Stop Time Status Last Admin Dose Admin Ioversol (Optiray 320) 100 ml UD PRN IV 08/01/16 16:00 08/05/16 15:59 Amlodipine Besylate (Norvasc Tab) 5 mg BID PO 08/02/16 09:00 09/01/16 08:59 08/03/16 08:38 5 MG Baclofen (Lioresal Tab) 10 mg Q8H PRN PO 08/01/16 21:15 08/31/16 21:14 Carvedilol (Coreg Tab) 6.25 mg BID PO 08/02/16 09:00 09/01/16 08:59 08/03/16 08:37 6.25 MG Finasteride (Proscar Tab) 5 mg DAILY PO 08/02/16 09:00 09/01/16 08:59 08/03/16 08:39 5 MG Levothyroxine Sodium (Synthroid Tab) 112 mcg DAILYBB PO 08/02/16 06:30 09/01/16 06:29 08/03/16 06:37 112 MCG Tamsulosin HCl (Flomax Cap) 0.4 mg DAILY PO 08/02/16 09:00 09/01/16 08:59 08/03/16 08:38 0.4 MG Acetaminophen (Tylenol Tab) 325 mg Q6H PRN PO 08/01/16 21:15 08/31/16 21:14 Ondansetron HCl (Zofran Inj) 4 mg Q6H PRN IV 08/01/16 21:15 08/31/16 21:14 Morphine Sulfate (MoRPHine SULFATE INJ) 4 mg Q3H PRN IV 08/01/16 21:15 08/15/16 21:14 Tramadol HCl (Ultram Tab) 25 mg Q6H PRN PO 08/01/16 21:15 08/31/16 21:14 Lorazepam 0.5 mg 0.5 mg Q4H PRN IV 08/01/16 21:15 08/31/16 21:14 Heparin Sodium/ Dextrose 500 ml @ 19 mls/hr Q24H PRN IV 08/01/16 22:45 08/31/16 22:44 08/02/16 21:15 19 MLS/HR Lorazepam/Syringe (Ativan Inj/ Syringe) 1 ml @ 1 mls/min Q4H PRN IV 08/01/16 23:00 08/31/16 22:59 HCTZ/Lisinopril (Prinzide 20-12.5MG Tab) 1 tab QAM PO 08/03/16 09:00 09/02/16 08:59 08/03/16 08:38 1 TAB Non-Formulary Medication (Non-Formulary Patient'S Own Med) 1 ea BID@0700,1900 PO 08/02/16 19:00 09/01/16 18:59 08/03/16 06:38 1 EA Warfarin Sodium (Coumadin Tab) 5 mg DAILY@16 PO 08/03/16 16:00 09/02/16 15:59 UNV
[2016-08-03] MEDS: WARFARIN SOD 5 MG TAB PO SCH (16:24)
[2016-08-03] MEDS: HEPARIN 25,000 UNIT/500ML D5W 500 ML IV PRN (20:43)
[2016-08-04] VITALS (7 sets, daily range): BP systolic 116–142; BP diastolic 50–81; PULSE 61–75; TEMP 36.3–36.7; O2SAT 90–94
[2016-08-04 05:17] LABS: BASO % 0.6 %; BASO ABS # 0.03 K/uL (0-0.2); COMPLETE YES; EOS % 15.5 %; HEMATOCRIT 38.8 % (42-52); LYMPH % 26.2 %; LYMPH ABS # 1.23 K/uL (1.2-3.4); MEAN CELL VOLUME 90.4 fL (80-100); MEAN CORPUSCULAR HEMOGLOBIN 31.7 pg (25-34); MEAN CORPUSCULAR HGB CONC 35.1 g/dl (32-36); MEAN PLATELET VOLUME 11.2 fL (7.4-10.4); MONO % 9.4 %; NEUT % 48.3 %; PLATELET COUNT 155 K/uL (130-400); RED BLOOD COUNT 4.29 M/uL (4.7-6.1)
[2016-08-04 05:34] LABS: INR 1.2 (0.9-1.1); PARTIAL THROMBOPLASTIN RATIO 2.3; PROTHROMBIN TIME (PATIENT) 13.4 SECONDS (9.0-12.0)
[2016-08-04 05:41] LABS: BUN/CREATININE RATIO 14.3 (10-20); CALCIUM 8.4 mg/dl (8.5-10.1); CREATININE 0.79 mg/dl (0.60-1.40); PHOSPHORUS 2.3 mg/dl (2.5-4.9); POTASSIUM 3.6 mmol/L (3.5-5.1)
[2016-08-04] MEDS: LEVOTHYROXINE 112 MCG TAB PO SCH (06:34)
[2016-08-04] MEDS: NEXAVAR PO SCH ×2 (06:36→19:08)
[2016-08-04] MEDS: CARVEDILOL 6.25 MG TAB PO SCH ×2 (07:55→22:08)
[2016-08-04] MEDS: TAMSULOSIN HCL 0.4 MG CAP PO SCH (07:56)
[2016-08-04] MEDS: AMLODIPINE BESYLATE 5 MG TAB PO SCH ×2 (07:56→22:08)
[2016-08-04] MEDS: LISINOPRIL/HCTZ 20/12.5MG TAB PO SCH (07:57)
[2016-08-04] MEDS: FINASTERIDE 5 MG TAB PO SCH (07:57)
--- NOTE | 2016-08-04 13:56 | Progress Note ---
Medicine Progress Note Date & Time of Visit: Aug 04, 2016 at 13:50. Subjective Pt was seen and examined Sitting very comfortable at the edge of the bed Pt said that he feels fine he would like to go home he denies any chest pain, palpitation, dizziness, hematuria and SOB Objective Last 8 Hrs Date Time Temp Pulse Resp B/P Pulse Ox O2 Delivery O2 Flow Rate FiO2 08/04/16 11:55 36.7 67 16 121/50 94 Room Air 08/04/16 08:00 Room Air 08/04/16 07:19 36.5 61 16 129/70 93 Room Air Physical Exam: General- Very pleasant, with no distress Head- atraumatic Eyes- PERRL, EOMI ENT- oropharynx clear Neck- supple, no JVD Lungs- No wheezing Heart- regular rhythm; no murmur Abdomen- normal bowel sounds, soft Extremities-no calf tenderness Neuro- alert, oriented, PERRL, EOMI Skin- warm & dry Laboratory Results: Last 24 Hours Test 08/04/16 04:58 White Blood Count 4.70 K/uL Red Blood Count 4.29 M/uL Hemoglobin 13.6 g/dL Hematocrit 38.8 % Mean Corpuscular Volume 90.4 fL Mean Corpuscular Hemoglobin 31.7 pg Mean Corpuscular Hemoglobin Concent 35.1 g/dl Platelet Count 155 K/uL Mean Platelet Volume 11.2 fL Neutrophils (%) (Auto) 48.3 % Lymphocytes (%) (Auto) 26.2 % Monocytes (%) (Auto) 9.4 % Eosinophils (%) (Auto) 15.5 % Basophils (%) (Auto) 0.6 % Neutrophils # (Auto) 2.27 K/uL Lymphocytes # (Auto) 1.23 K/uL Monocytes # (Auto) 0.44 K/uL Eosinophils # (Auto) 0.73 K/uL Basophils # (Auto) 0.03 K/uL RDW Standard Deviation 47.0 fL RDW Coefficient of Variation 14.4 % Immature Granulocyte % (Auto) 0.0 % Immature Granulocyte # (Auto) 0.00 K/uL Prothrombin Time 13.4 SECONDS Prothromb Time International Ratio 1.2 Activated Partial Thromboplast Time 60.8 SECONDS Partial Thromboplastin Ratio 2.3 Sodium Level 141 mmol/L Potassium Level 3.6 mmol/L Chloride Level 103 mmol/L Carbon Dioxide Level 30 mmol/L Anion Gap 8.0 mmol/L Blood Urea Nitrogen 11 mg/dl Creatinine 0.79 mg/dl Est Creatinine Clear Calc Drug Dose 91.7 ml/min Estimated GFR () 102.5 Estimated GFR (Non- 88.5 BUN/Creatinine Ratio 14.3 Random Glucose 104 mg/dl Calcium Level 8.4 mg/dl Phosphorus Level 2.3 mg/dl Assessment & Plan BILATERAL PULMONARY EMBOLISM - Mostly due to underlying malignancy - history of retroperitoneal bleed 03/2016 with resolution on most recent CT scan - would consider transition to SQ Lovenox due to patient's underlying malignancy , however due to recent retroperitoneal bleed and hypervascular liver lesions will use Coumadin for ease of reversibility in the event of re-bleeding. I again discussed the risk of anticoagulant with the patient and his daughter because due to his recent retroperitoneal bleed and hypervascular hepatic mass that put patient at risk for bleeding. Pt understands why we choose the coumadin over the lovenox, in case there is bleeding that we can reverse it easily. -Continue IV heparin drip, starting on coumadin 5 mg case discussed with Dr. Bird Hematology that recommended coumadin. -will continue monitor h/h and INR closely - B/L doppler u/s of lower extremity was negative for DVT - I don't think pt will benefit from IVC because doppler show no evidence for DVT - but will try to discuss case with Vascular surgery Dr. Gunn for possible IVC filter tomorrow - Will keep INR goal btw 2-2.5 -INR today 1.2 -continue monitor closely for sign of bleeding and check PT/INR and cbc in am RIGHT PLEURAL EFFUSION - US showed Small right pleural effusion with an estimated volume of 482 cc. -Asymptomatic HX METASTATIC HEPATOCELLULAR CARCINOMA - follows with Dr. You - continue oral Nexavar HEMOCHROMATOSIS - receives phlebotomy - hgb stable HTN -Continue monitor BP - continue amlodipine, carvedilol, and lisinopril - Stable HYPOTHYROIDISM - continue levothyroxine DVT PROPHYLAXIS - IV Heparin drip/Coumadin CODE STATUS FULL CODE Current Inpatient Medications: Current Inpatient Medications Medications (Trade) Dose Ordered Sig/Rad Route Start Time Stop Time Status Last Admin Dose Admin Ioversol (Optiray 320) 100 ml UD PRN IV 08/01/16 16:00 08/05/16 15:59 Amlodipine Besylate (Norvasc Tab) 5 mg BID PO 08/02/16 09:00 09/01/16 08:59 08/04/16 07:56 5 MG Baclofen (Lioresal Tab) 10 mg Q8H PRN PO 08/01/16 21:15 08/31/16 21:14 Carvedilol (Coreg Tab) 6.25 mg BID PO 08/02/16 09:00 09/01/16 08:59 08/04/16 07:55 6.25 MG Finasteride (Proscar Tab) 5 mg DAILY PO 08/02/16 09:00 09/01/16 08:59 08/04/16 07:57 5 MG Levothyroxine Sodium (Synthroid Tab) 112 mcg DAILYBB PO 08/02/16 06:30 09/01/16 06:29 08/04/16 06:34 112 MCG Tamsulosin HCl (Flomax Cap) 0.4 mg DAILY PO 08/02/16 09:00 09/01/16 08:59 08/04/16 07:56 0.4 MG Acetaminophen (Tylenol Tab) 325 mg Q6H PRN PO 08/01/16 21:15 08/31/16 21:14 Ondansetron HCl (Zofran Inj) 4 mg Q6H PRN IV 08/01/16 21:15 08/31/16 21:14 Morphine Sulfate (MoRPHine SULFATE INJ) 4 mg Q3H PRN IV 08/01/16 21:15 08/15/16 21:14 Tramadol HCl (Ultram Tab) 25 mg Q6H PRN PO 08/01/16 21:15 08/31/16 21:14 Lorazepam 0.5 mg 0.5 mg Q4H PRN IV 08/01/16 21:15 08/31/16 21:14 Heparin Sodium/ Dextrose 500 ml @ 19 mls/hr Q24H PRN IV 08/01/16 22:45 08/31/16 22:44 08/03/16 20:43 19 MLS/HR Lorazepam/Syringe (Ativan Inj/ Syringe) 1 ml @ 1 mls/min Q4H PRN IV 08/01/16 23:00 08/31/16 22:59 HCTZ/Lisinopril (Prinzide 20-12.5MG Tab) 1 tab QAM PO 08/03/16 09:00 09/02/16 08:59 08/04/16 07:57 1 TAB Non-Formulary Medication (Non-Formulary Patient'S Own Med) 1 ea BID@0700,1900 PO 08/02/16 19:00 09/01/16 18:59 08/04/16 06:36 1 EA Warfarin Sodium (Coumadin Tab) 5 mg DAILY@16 PO 08/03/16 16:00 09/02/16 15:59 08/03/16 16:24 5 MG
[2016-08-04] MEDS ORDERED: WARFARIN SOD 5 MG TAB PO SCH (16:00)
[2016-08-04] MEDS: WARFARIN SOD 5 MG TAB PO SCH (16:11)
[2016-08-04] MEDS: HEPARIN 25,000 UNIT/500ML D5W 500 ML IV PRN (22:13)
[2016-08-05] VITALS (8 sets, daily range): BP systolic 109–154; BP diastolic 69–86; PULSE 68–99; TEMP 36.4–37.3; O2SAT 90–93
[2016-08-05 05:20] LABS: BASO % 0.8 %; BASO ABS # 0.04 K/uL (0-0.2); COMPLETE YES; EOS % 18.8 %; HEMATOCRIT 40.2 % (42-52); IG% 0.2 %; LYMPH % 26.4 %; LYMPH ABS # 1.29 K/uL (1.2-3.4); MEAN CORPUSCULAR HEMOGLOBIN 31.4 pg (25-34); MEAN CORPUSCULAR HGB CONC 34.6 g/dl (32-36); MEAN PLATELET VOLUME 10.7 fL (7.4-10.4); MONO % 8.2 %; NEUT % 45.6 %; PLATELET COUNT 137 K/uL (130-400); RED BLOOD COUNT 4.42 M/uL (4.7-6.1); WHITE BLOOD COUNT 4.89 K/uL (4.8-10.8)
[2016-08-05 05:34] LABS: INR 1.3 (0.9-1.1); PARTIAL THROMBOPLASTIN RATIO 2.1; PROTHROMBIN TIME (PATIENT) 14.1 SECONDS (9.0-12.0)
[2016-08-05] MEDS: LEVOTHYROXINE 112 MCG TAB PO SCH (06:32)
[2016-08-05] MEDS: NEXAVAR PO SCH ×2 (06:33→19:35)
[2016-08-05] MEDS: TAMSULOSIN HCL 0.4 MG CAP PO SCH (08:58)
[2016-08-05] MEDS: AMLODIPINE BESYLATE 5 MG TAB PO SCH ×2 (08:58→22:10)
[2016-08-05] MEDS: LISINOPRIL/HCTZ 20/12.5MG TAB PO SCH (08:58)
[2016-08-05] MEDS: CARVEDILOL 6.25 MG TAB PO SCH ×2 (08:58→22:10)
[2016-08-05] MEDS: FINASTERIDE 5 MG TAB PO SCH (08:58)
[2016-08-05] MEDS: ONDANSETRON INJ 2 MG/ML 2 ML VIAL IV PRN ×2 (11:43→17:22)
[2016-08-05] MEDS: WARFARIN SOD 5 MG TAB PO SCH (16:19)
[2016-08-05] MEDS ORDERED: PROMETHAZINE HCL INJ 12.5 MG in SODIUM CHLORIDE 0.9% 50ML 50 ML IV PRN (18:00)
[2016-08-05] MEDS ORDERED: NURSING VERBAL MED ORDER ONE (18:00)
--- NOTE | 2016-08-05 18:07 | Progress Note ---
Medicine Progress Note Date & Time of Visit: Aug 05, 2016 at 17:50. Subjective Pt was seen and examined Pt sitting in chair very comfortable with no distress Pt said that he feels fine He denies any chest pain, palpitation, dizziness and sob He understands that he is still in the hospital for the INR Objective Last 8 Hrs Date Time Temp Pulse Resp B/P Pulse Ox O2 Delivery O2 Flow Rate FiO2 08/05/16 16:00 Room Air 08/05/16 15:34 36.5 77 20 147/86 90 Room Air 08/05/16 15:33 37.0 79 16 147/74 93 Room Air 08/05/16 12:15 Room Air 08/05/16 11:29 36.5 70 16 136/75 91 Room Air Physical Exam: General- Very pleasant, with no distress Head- atraumatic Eyes- PERRL, EOMI ENT- oropharynx clear Neck- supple, no JVD Lungs- No wheezing Heart- regular rhythm; no murmur Abdomen- normal bowel sounds, soft Extremities-no calf tenderness Neuro- alert, oriented, PERRL, EOMI Skin- warm & dry Laboratory Results: Last 24 Hours Test 08/05/16 05:07 White Blood Count 4.89 K/uL Red Blood Count 4.42 M/uL Hemoglobin 13.9 g/dL Hematocrit 40.2 % Mean Corpuscular Volume 91.0 fL Mean Corpuscular Hemoglobin 31.4 pg Mean Corpuscular Hemoglobin Concent 34.6 g/dl Platelet Count 137 K/uL Mean Platelet Volume 10.7 fL Neutrophils (%) (Auto) 45.6 % Lymphocytes (%) (Auto) 26.4 % Monocytes (%) (Auto) 8.2 % Eosinophils (%) (Auto) 18.8 % Basophils (%) (Auto) 0.8 % Neutrophils # (Auto) 2.23 K/uL Lymphocytes # (Auto) 1.29 K/uL Monocytes # (Auto) 0.40 K/uL Eosinophils # (Auto) 0.92 K/uL Basophils # (Auto) 0.04 K/uL RDW Standard Deviation 47.9 fL RDW Coefficient of Variation 14.2 % Immature Granulocyte % (Auto) 0.2 % Immature Granulocyte # (Auto) 0.01 K/uL Prothrombin Time 14.1 SECONDS Prothromb Time International Ratio 1.3 Activated Partial Thromboplast Time 53.7 SECONDS Partial Thromboplastin Ratio 2.1 Assessment & Plan BILATERAL PULMONARY EMBOLISM - Mostly due to underlying malignancy - history of retroperitoneal bleed 03/2016 with resolution on most recent CT scan - would consider transition to SQ Lovenox due to patient's underlying malignancy , however due to recent retroperitoneal bleed and hypervascular liver lesions will use Coumadin for ease of reversibility in the event of re-bleeding. I again discussed the risk of anticoagulant with the patient and his daughter because due to his recent retroperitoneal bleed and hypervascular hepatic mass that put patient at risk for bleeding. Pt understands why we choose the coumadin over the lovenox, in case there is bleeding that we can reverse it easily. -Continue IV heparin drip, continue on coumadin 5 mg case discussed with Dr. Bird Hematology that recommended coumadin. -will continue monitor h/h and INR closely - B/L doppler u/s of lower extremity was negative for DVT - Discussed case with Vascular surgery Dr. Gunn's PA Ashia - Dr. Gunn was already contacted and discussed the case with the ER physician - Dr. Gunn said that since there is possible involvement of the IVC from the recent CT abdomen report, he would not place an IVC filter. - Will keep INR goal btw 2-2.5 - INR today 1.3 -continue monitor closely for sign of bleeding and check PT/INR and cbc in am - I again discussed the bleeding risk with pt because he is on coumadin and he is very high risk to bleed because of his retroperitoneal hemorrhage and hypervascular hepatic mass. RIGHT PLEURAL EFFUSION - US showed Small right pleural effusion with an estimated volume of 482 cc. -Asymptomatic HX METASTATIC HEPATOCELLULAR CARCINOMA - follows with Dr. You - continue oral Nexavar HEMOCHROMATOSIS - receives phlebotomy - hgb stable HTN -Continue monitor BP - continue amlodipine, carvedilol, and lisinopril - Stable HYPOTHYROIDISM - continue levothyroxine DVT PROPHYLAXIS - IV Heparin drip/Coumadin -INR 1.3 today CODE STATUS FULL CODE Current Inpatient Medications: Current Inpatient Medications Medications (Trade) Dose Ordered Sig/Rad Route Start Time Stop Time Status Last Admin Dose Admin Amlodipine Besylate (Norvasc Tab) 5 mg BID PO 08/02/16 09:00 09/01/16 08:59 08/05/16 08:58 5 MG Baclofen (Lioresal Tab) 10 mg Q8H PRN PO 08/01/16 21:15 08/31/16 21:14 08/05/16 14:07 10 MG Carvedilol (Coreg Tab) 6.25 mg BID PO 08/02/16 09:00 09/01/16 08:59 08/05/16 08:58 6.25 MG Finasteride (Proscar Tab) 5 mg DAILY PO 08/02/16 09:00 09/01/16 08:59 08/05/16 08:58 5 MG Levothyroxine Sodium (Synthroid Tab) 112 mcg DAILYBB PO 08/02/16 06:30 09/01/16 06:29 08/05/16 06:32 112 MCG Tamsulosin HCl (Flomax Cap) 0.4 mg DAILY PO 08/02/16 09:00 09/01/16 08:59 08/05/16 08:58 0.4 MG Acetaminophen (Tylenol Tab) 325 mg Q6H PRN PO 08/01/16 21:15 08/31/16 21:14 08/05/16 13:26 325 MG Ondansetron HCl (Zofran Inj) 4 mg Q6H PRN IV 08/01/16 21:15 08/31/16 21:14 08/05/16 17:22 4 MG Morphine Sulfate (MoRPHine SULFATE INJ) 4 mg Q3H PRN IV 08/01/16 21:15 08/15/16 21:14 Tramadol HCl (Ultram Tab) 25 mg Q6H PRN PO 08/01/16 21:15 08/31/16 21:14 Lorazepam 0.5 mg 0.5 mg Q4H PRN IV 08/01/16 21:15 08/31/16 21:14 Heparin Sodium/ Dextrose 500 ml @ 19 mls/hr Q24H PRN IV 08/01/16 22:45 08/31/16 22:44 08/04/16 22:13 19 MLS/HR Lorazepam/Syringe (Ativan Inj/ Syringe) 1 ml @ 1 mls/min Q4H PRN IV 08/01/16 23:00 08/31/16 22:59 HCTZ/Lisinopril (Prinzide 20-12.5MG Tab) 1 tab QAM PO 08/03/16 09:00 09/02/16 08:59 08/05/16 08:58 1 TAB Non-Formulary Medication (Non-Formulary Patient'S Own Med) 1 ea BID@0700,1900 PO 08/02/16 19:00 09/01/16 18:59 08/05/16 06:33 1 EA Warfarin Sodium (Coumadin Tab) 5 mg DAILY@16 PO 08/03/16 16:00 09/02/16 15:59 08/05/16 16:19 5 MG
--- NOTE | 2016-08-05 22:04 | DIAGNOSTIC IMAGING REPORT ---
CT SCAN OF THE ABDOMEN AND PELVIS WITHOUT CONTRAST CLINICAL HISTORY: Flank pain, nausea and vomiting, retroperitoneal hemorrhage. COMPARISON STUDY: August 01, 2016 TECHNIQUE: CT scan of the abdomen and pelvis was performed from the lung bases to the proximal femurs. Images are reviewed in the axial, sagittal, and coronal planes. IV contrast was not administered for this examination. CT DOSE: 794.08 mGy.cm FINDINGS: Lower chest: There is a moderate right pleural effusion with associated right lower lobe atelectasis/consolidation similar to the preceding study. Liver: There are multiple hepatic masses which are more difficult to visualize than on the prior contrast-enhanced study there are areas of capsular retraction. Gallbladder: Surgically absent Spleen: Normal in size and attenuation. Pancreas: Unremarkable. Adrenal glands: The left adrenal gland appears normal. The right adrenal gland is not clearly visualized and may be replaced by tumor Kidneys: No renal, ureteral, or bladder calculi are visualized. There is a rim calcified 7.6 cm lower pole right renal cyst. Bowel: There are no transition zones to indicate bowel obstruction. There is no evidence of acute diverticulitis. The appendix is not visualized with certainty on this study performed without the benefit of intravenous or oral contrast Peritoneum: There is no free intraperitoneal air. There is low volume pelvic ascites. There is minor stranding within the right retroperitoneum consistent with history of prior hemorrhage. No new hemorrhage is visualized. There are multiple abdominal wall nodules consistent with metastatic disease. Vasculature: The abdominal aorta is normal in course and caliber. Adenopathy: None. Pelvic viscera: There is mild prostamegaly. Skeletal structures: No destructive osseous lesions are seen. IMPRESSION: 1. Multiple hepatic masses consistent with the patient's known hepatocellular carcinoma 2. Multiple soft tissue nodules within the anterior abdominal wall consistent with metastatic foci 3. Persistent moderate right pleural effusion 4. Low volume ascites 5. Stable rim calcified 7.6 cm lower pole right renal cyst 6. No evidence of bowel obstruction. No evidence of free air 7. No evidence of acute retroperitoneal hemorrhage 8. No renal, ureteral, or bladder calculi identified Electronically signed by: Felix Mckeon M.D. 08/05/2016 10:03 PM Dictated Date/Time: 08/05/2016 9:54 PM
[2016-08-06] VITALS (10 sets, daily range): BP systolic 108–142; BP diastolic 67–86; PULSE 75–87; TEMP 36.3–36.7; O2SAT 91–93
[2016-08-06 05:36] LABS: BASO % 0.3 %; BASO ABS # 0.02 K/uL (0-0.2); COMPLETE YES; EOS % 10.2 %; HEMATOCRIT 46.1 % (42-52); IG% 0.2 %; LYMPH ABS # 0.58 K/uL (1.2-3.4); MEAN CELL VOLUME 91.5 fL (80-100); MEAN CORPUSCULAR HEMOGLOBIN 31.9 pg (25-34); MEAN CORPUSCULAR HGB CONC 34.9 g/dl (32-36); MEAN PLATELET VOLUME 10.9 fL (7.4-10.4); NEUT % 73.3 %; PLATELET COUNT 198 K/uL (130-400); RED BLOOD COUNT 5.04 M/uL (4.7-6.1); WHITE BLOOD COUNT 5.79 K/uL (4.8-10.8)
[2016-08-06 05:56] LABS: INR 1.6 (0.9-1.1); PARTIAL THROMBOPLASTIN RATIO 2.1; PROTHROMBIN TIME (PATIENT) 17.5 SECONDS (9.0-12.0)
[2016-08-06] MEDS: LEVOTHYROXINE 112 MCG TAB PO SCH (06:28)
[2016-08-06] MEDS: NEXAVAR PO SCH ×2 (07:00→19:00)
[2016-08-06] MEDS: TAMSULOSIN HCL 0.4 MG CAP PO SCH (07:53)
[2016-08-06] MEDS: AMLODIPINE BESYLATE 5 MG TAB PO SCH ×2 (07:54→20:58)
[2016-08-06] MEDS: CARVEDILOL 6.25 MG TAB PO SCH ×2 (07:54→20:57)
[2016-08-06] MEDS: FINASTERIDE 5 MG TAB PO SCH (07:54)
[2016-08-06] MEDS: LISINOPRIL/HCTZ 20/12.5MG TAB PO SCH (07:54)
--- NOTE | 2016-08-06 09:32 | Progress Note ---
Internal Med Progress Note Date of Service: Aug 06, 2016. Provider Documentation: SUBJECTIVE: Patient c/o nausea, vomiting and diarrhea which started yesterday. Had vomiting yesterday night, continues to feel nauseous. No associated abdominal pain. But does get the urge before diarrhea. Has had 5 episodes of watery, loose , not bloody diarrhea. No SOB, chest pain, fever, chills, urinary complaints Not hypoxic OBJECTIVE: Vital Signs-as noted below Exam: General-AAOX3, no distress Neck-Supple, No JVD Lungs-AEBE, no wheezing, crackles Heart-S1, S2 normal, no murmurs Abdomen-Soft, non tender, non distended, BS present Extremities- No edema Lab data as noted below. ASSESSMENT & PLAN: BILATERAL PULMONARY EMBOLISM : - Mostly due to underlying malignancy - History of retroperitoneal bleed 03/2016 with resolution on most recent CT scan - Considered SQ Lovenox due to patient's underlying malignancy, however due to recent retroperitoneal bleed and hypervascular liver lesions and discussion with Dr You, decided to use Coumadin for ease of reversibility in the event of re-bleeding. Discussed the risk of anticoagulant/bleeding with the patient and his daughter because due to his recent retroperitoneal bleed and hypervascular hepatic mass. Pt understands why we choose the coumadin over the lovenox, in case there is bleeding that we can reverse it easily. -Continue IV heparin drip, continue on coumadin 5 mg. INR 1.6 (Goal : 2-2/5) -Case discussed by Dr Hmam with Dr. Bird Hematology who recommended coumadin. Dr Hamm discussed case with Vascular surgery Dr. Gunn's NATALEE Ang. Per Dr Gunn since there is possible involvement of the IVC from the recent CT abdomen report, he would not place an IVC filter. -Work up- B/L doppler u/s of lower extremity was negative for DVT NAUSEA/VOMITING/DIARRHEA- New onset Gastroenteritis ? Started just yesterday -Clear liquids as refusing solid due to nausea -C diff ordered -IV zofran PRN -Monitor RIGHT PLEURAL EFFUSION - US showed Small right pleural effusion with an estimated volume of 482 cc. - Asymptomatic HX METASTATIC HEPATOCELLULAR CARCINOMA - follows with Dr. You - continue oral Nexavar HEMOCHROMATOSIS - receives phlebotomy - hgb stable HTN - Stable - Continue amlodipine, carvedilol, and lisinopril /HCTZ HYPOTHYROIDISM - Continue levothyroxine DVT PROPHYLAXIS - IV Heparin drip/Coumadin CODE STATUS FULL CODE DISPOSITION Ambulating well Expected discharge home when N/V/D resolves, INR therapeutic Discussed with /daughter by bedside. Vital Signs: Date Time Temp Pulse Resp B/P Pulse Ox O2 Delivery O2 Flow Rate FiO2 08/06/16 08:00 92 Room Air 08/06/16 07:20 36.7 80 18 112/69 92 08/06/16 04:54 36.7 87 20 130/84 92 Room Air 08/06/16 04:00 93 Room Air 08/06/16 00:01 93 Room Air 08/05/16 23:42 37.3 99 18 109/71 90 Room Air 08/05/16 22:09 94 118/74 08/05/16 20:13 36.7 91 18 154/79 91 Room Air 08/05/16 19:50 Room Air 08/05/16 16:00 Room Air 08/05/16 15:34 36.5 77 20 147/86 90 Room Air 08/05/16 15:33 37.0 79 16 147/74 93 Room Air 08/05/16 12:15 Room Air 08/05/16 11:29 36.5 70 16 136/75 91 Room Air Lab Results: Results Past 24 Hours Test 08/06/16 05:20 Range/Units White Blood Count 5.79 4.8-10.8 K/uL Red Blood Count 5.04 4.7-6.1 M/uL Hemoglobin 16.1 14.0-18.0 g/dL Hematocrit 46.1 42-52 % Mean Corpuscular Volume 91.5 80-100 fL Mean Corpuscular Hemoglobin 31.9 25-34 pg Mean Corpuscular Hemoglobin Concent 34.9 32-36 g/dl Platelet Count 198 130-400 K/uL Mean Platelet Volume 10.9 7.4-10.4 fL Neutrophils (%) (Auto) 73.3 % Lymphocytes (%) (Auto) 10.0 % Monocytes (%) (Auto) 6.0 % Eosinophils (%) (Auto) 10.2 % Basophils (%) (Auto) 0.3 % Neutrophils # (Auto) 4.24 1.4-6.5 K/uL Lymphocytes # (Auto) 0.58 1.2-3.4 K/uL Monocytes # (Auto) 0.35 0.11-0.59 K/uL Eosinophils # (Auto) 0.59 0-0.5 K/uL Basophils # (Auto) 0.02 0-0.2 K/uL RDW Standard Deviation 48.9 36.4-46.3 fL RDW Coefficient of Variation 14.6 11.5-14.5 % Immature Granulocyte % (Auto) 0.2 % Immature Granulocyte # (Auto) 0.01 0.00-0.02 K/uL Prothrombin Time 17.5 9.0-12.0 SECONDS Prothromb Time International Ratio 1.6 0.9-1.1 Activated Partial Thromboplast Time 55.6 21.0-31.0 SECONDS Partial Thromboplastin Ratio 2.1
[2016-08-06] MEDS: WARFARIN SOD 5 MG TAB PO SCH (16:18)
[2016-08-06] MEDS: ONDANSETRON INJ 2 MG/ML 2 ML VIAL IV PRN (20:06)
[2016-08-07] VITALS (12 sets, daily range): BP systolic 116–138; BP diastolic 65–79; PULSE 67–77; TEMP 36.3–36.7; O2SAT 90–95
[2016-08-07 05:35] LABS: BASO % 0.4 %; BASO ABS # 0.02 K/uL (0-0.2); COMPLETE YES; EOS % 12.9 %; HEMATOCRIT 41.1 % (42-52); IG% 0.2 %; LYMPH ABS # 1.23 K/uL (1.2-3.4); MEAN CELL VOLUME 89.7 fL (80-100); MEAN CORPUSCULAR HEMOGLOBIN 31.4 pg (25-34); MONO % 10.9 %; NEUT % 52.6 %; PLATELET COUNT 180 K/uL (130-400); RED BLOOD COUNT 4.58 M/uL (4.7-6.1); WHITE BLOOD COUNT 5.34 K/uL (4.8-10.8)
[2016-08-07 05:56] LABS: INR 1.9 (0.9-1.1); PARTIAL THROMBOPLASTIN RATIO 2.6; PROTHROMBIN TIME (PATIENT) 21.3 SECONDS (9.0-12.0)
[2016-08-07] MEDS: NEXAVAR PO SCH ×2 (06:06→19:21)
[2016-08-07] MEDS: LEVOTHYROXINE 112 MCG TAB PO SCH (06:06)
[2016-08-07] MEDS: ONDANSETRON INJ 2 MG/ML 2 ML VIAL IV PRN (06:10)
[2016-08-07 06:15] LABS: BUN/CREATININE RATIO 22.3 (10-20); CALCIUM 8.1 mg/dl (8.5-10.1); CREATININE 1.1 mg/dl (0.60-1.40); POTASSIUM 3.1 mmol/L (3.5-5.1)
[2016-08-07] MEDS: LISINOPRIL/HCTZ 20/12.5MG TAB PO SCH (08:38)
[2016-08-07] MEDS: CARVEDILOL 6.25 MG TAB PO SCH ×2 (08:38→21:00)
[2016-08-07] MEDS: FINASTERIDE 5 MG TAB PO SCH (08:38)
[2016-08-07] MEDS: TAMSULOSIN HCL 0.4 MG CAP PO SCH (08:38)
[2016-08-07] MEDS: AMLODIPINE BESYLATE 5 MG TAB PO SCH ×2 (08:39→21:22)
[2016-08-07] MEDS: POTASSIUM CHLORIDE 20 MEQ TABCR PO SCH ×2 (09:25→12:29)
--- NOTE | 2016-08-07 11:11 | Progress Note ---
Internal Med Progress Note Date of Service: Aug 07, 2016. Provider Documentation: SUBJECTIVE: Patient is feeling better today. Nausea + but improved, no vomiting since yesterday night, Diarrhea frequency has decreased and consistency better- 2 since night. No SOB, chest pain, fever, chills, abdominal pain, urinary complaints Not hypoxic OBJECTIVE: Vital Signs-as noted below Exam: General-AAOX3, no distress Neck-Supple, No JVD Lungs-AEBE, no wheezing, crackles Heart-S1, S2 normal, no murmurs Abdomen-Soft, non tender, non distended, BS present Extremities- No edema Lab data as noted below. ASSESSMENT & PLAN: BILATERAL PULMONARY EMBOLISM : - Mostly due to underlying malignancy - History of retroperitoneal bleed 03/2016 with resolution on most recent CT scan - Considered SQ Lovenox due to patient's underlying malignancy, however due to recent retroperitoneal bleed and hypervascular liver lesions and discussion with Dr You, decided to use Coumadin for ease of reversibility in the event of re-bleeding. Discussed the risk of anticoagulant/bleeding with the patient and his daughter because due to his recent retroperitoneal bleed and hypervascular hepatic mass. Pt understands why we choose the coumadin over the lovenox, in case there is bleeding that we can reverse it easily. -Continue IV heparin drip, continue on coumadin 5 mg. INR 1.9 (Goal : 2-2/5) -Case discussed by Dr Hamm with Dr. You Hematology who recommended coumadin. Dr Hamm discussed case with Vascular surgery Dr. Gunn's PA Ashia. Per Dr Gunn since there is possible involvement of the IVC from the recent CT abdomen report, he would not place an IVC filter. -Work up- B/L doppler u/s of lower extremity was negative for DVT NAUSEA/VOMITING/DIARRHEA- Improving New onset Gastroenteritis ? Started just yesterday -Clear liquid advanced to regular- tolerating well -C diff - negative -IV zofran PRN- encouraged not to use it to see if improving symptoms -Monitor HYPOKALEMIA Secondary to N/V/D -Replace -Monitor K, Mg RIGHT PLEURAL EFFUSION - US showed Small right pleural effusion with an estimated volume of 482 cc. - Asymptomatic HX METASTATIC HEPATOCELLULAR CARCINOMA - Follows with Dr. You - continue oral Nexavar- can cause N/V/Diarrhea as well, but as sudden in onset and improved within 24 hours while continuing the medication, less likely causing it. HEMOCHROMATOSIS - receives phlebotomy - hgb stable HTN - Stable - Continue amlodipine, carvedilol, and lisinopril /HCTZ HYPOTHYROIDISM - Continue levothyroxine DVT PROPHYLAXIS - IV Heparin drip/Coumadin CODE STATUS FULL CODE DISPOSITION Ambulating well Expected discharge home when N/V/D resolves, INR therapeutic- probably tomorrow. Discussed with /daughter by bedside yesterday Vital Signs: Date Time Temp Pulse Resp B/P Pulse Ox O2 Delivery O2 Flow Rate FiO2 08/07/16 08:00 90 Room Air 08/07/16 07:37 36.7 70 20 133/79 90 08/07/16 04:41 36.6 72 18 116/75 92 Room Air 08/07/16 04:00 Room Air 08/07/16 00:11 36.6 75 18 120/77 90 Room Air 08/07/16 00:00 Room Air 08/06/16 20:00 Room Air 08/06/16 19:58 36.7 84 20 142/86 91 Room Air 08/06/16 16:00 92 Room Air 08/06/16 14:46 36.7 76 18 110/67 92 08/06/16 12:00 92 Room Air 08/06/16 11:14 36.3 75 20 108/70 91 Lab Results: Results Past 24 Hours Test 08/07/16 05:14 Range/Units White Blood Count 5.34 4.8-10.8 K/uL Red Blood Count 4.58 4.7-6.1 M/uL Hemoglobin 14.4 14.0-18.0 g/dL Hematocrit 41.1 42-52 % Mean Corpuscular Volume 89.7 80-100 fL Mean Corpuscular Hemoglobin 31.4 25-34 pg Mean Corpuscular Hemoglobin Concent 35.0 32-36 g/dl Platelet Count 180 130-400 K/uL Mean Platelet Volume 11.0 7.4-10.4 fL Neutrophils (%) (Auto) 52.6 % Lymphocytes (%) (Auto) 23.0 % Monocytes (%) (Auto) 10.9 % Eosinophils (%) (Auto) 12.9 % Basophils (%) (Auto) 0.4 % Neutrophils # (Auto) 2.81 1.4-6.5 K/uL Lymphocytes # (Auto) 1.23 1.2-3.4 K/uL Monocytes # (Auto) 0.58 0.11-0.59 K/uL Eosinophils # (Auto) 0.69 0-0.5 K/uL Basophils # (Auto) 0.02 0-0.2 K/uL RDW Standard Deviation 47.4 36.4-46.3 fL RDW Coefficient of Variation 14.6 11.5-14.5 % Immature Granulocyte % (Auto) 0.2 % Immature Granulocyte # (Auto) 0.01 0.00-0.02 K/uL Prothrombin Time 21.3 9.0-12.0 SECONDS Prothromb Time International Ratio 1.9 0.9-1.1 Activated Partial Thromboplast Time 68.8 21.0-31.0 SECONDS Partial Thromboplastin Ratio 2.6 Sodium Level 140 136-145 mmol/L Potassium Level 3.1 3.5-5.1 mmol/L Chloride Level 102 98-107 mmol/L Carbon Dioxide Level 26 21-32 mmol/L Anion Gap 12.0 3-11 mmol/L Blood Urea Nitrogen 25 7-18 mg/dl Creatinine 1.10 0.60-1.40 mg/dl Est Creatinine Clear Calc Drug Dose 65.0 ml/min Estimated GFR () 76.2 Estimated GFR (Non- 65.8 BUN/Creatinine Ratio 22.3 10-20 Random Glucose 100 70-99 mg/dl Calcium Level 8.1 8.5-10.1 mg/dl Microbiology Results 08/06/16 C.difficile Toxin B Gene (PCR) - Final, Complete No C. difficile toxin B gene detected
[2016-08-07] MEDS: WARFARIN SOD 5 MG TAB PO SCH (16:00)
[2016-08-07] MEDS ORDERED: ALUMINUM/MAGNESIUM/SIMETH (MAALOX MAX) 30 ML UDC PO STA (21:35)
[2016-08-07] MEDS ORDERED: ALUMINUM/MAGNESIUM/SIMETH (MAALOX MAX) 30 ML UDC PO PRN (21:45)
[2016-08-08 04:21] VITALS: BP 122/63; PULSE 67; TEMP 36.5; O2SAT 91
[2016-08-08 05:40] LABS: BASO % 0.4 %; BASO ABS # 0.02 K/uL (0-0.2); COMPLETE YES; EOS % 12.3 %; HEMATOCRIT 41.1 % (42-52); IG% 0.2 %; LYMPH % 25.3 %; LYMPH ABS # 1.44 K/uL (1.2-3.4); MEAN CELL VOLUME 91.1 fL (80-100); MEAN CORPUSCULAR HEMOGLOBIN 31.5 pg (25-34); MEAN CORPUSCULAR HGB CONC 34.5 g/dl (32-36); MEAN PLATELET VOLUME 10.7 fL (7.4-10.4); MONO % 12.8 %; PLATELET COUNT 182 K/uL (130-400); RED BLOOD COUNT 4.51 M/uL (4.7-6.1); WHITE BLOOD COUNT 5.69 K/uL (4.8-10.8)
[2016-08-08] MEDS: NEXAVAR PO SCH (06:05)
[2016-08-08] MEDS: LEVOTHYROXINE 112 MCG TAB PO SCH (06:05)
[2016-08-08 06:11] LABS: BUN/CREATININE RATIO 21.6 (10-20); CALCIUM 7.9 mg/dl (8.5-10.1); CREATININE 0.96 mg/dl (0.60-1.40); MAGNESIUM 2.4 mg/dl (1.8-2.4); POTASSIUM 3.5 mmol/L (3.5-5.1)
[2016-08-08] MEDS: HEPARIN 25,000 UNIT/500ML D5W 500 ML IV PRN (06:11)
[2016-08-08 06:23] LABS: INR 2.2 (0.9-1.1); PARTIAL THROMBOPLASTIN RATIO 2.9; PROTHROMBIN TIME (PATIENT) 24.4 SECONDS (9.0-12.0)
[2016-08-08 07:10] VITALS: BP 113/72; PULSE 70; TEMP 36.5; O2SAT 93
[2016-08-08] MEDS: CARVEDILOL 6.25 MG TAB PO SCH (07:37)
[2016-08-08] MEDS: AMLODIPINE BESYLATE 5 MG TAB PO SCH (07:38)
[2016-08-08] MEDS: LISINOPRIL/HCTZ 20/12.5MG TAB PO SCH (07:38)
[2016-08-08] MEDS: FINASTERIDE 5 MG TAB PO SCH (07:38)
[2016-08-08] MEDS: TAMSULOSIN HCL 0.4 MG CAP PO SCH (07:38)
[2016-08-08] MEDS ORDERED: PANTOprazole SOD 40 MG TAB PO SCH (09:00)
--- NOTE | 2016-08-08 09:34 | Progress Note ---
Internal Med Progress Note Date of Service: Aug 08, 2016. Provider Documentation: SUBJECTIVE: Patient is doing well and eager to be discharged. Diarrhea frequency has decreased and consistency better, but still has 2-3 Nausea, vomiting has resolved. No SOB, chest pain, fever, chills, abdominal pain, urinary complaints Tolerating PO well Not hypoxic OBJECTIVE: Vital Signs-as noted below Exam: General-AAOX3, no distress Neck-Supple, No JVD Lungs-AEBE, no wheezing, crackles Heart-S1, S2 normal, no murmurs Abdomen-Soft, non tender, non distended, BS present Extremities- No edema Lab data as noted below. ASSESSMENT & PLAN: BILATERAL PULMONARY EMBOLISM : - Mostly due to underlying malignancy - History of retroperitoneal bleed 03/2016 with resolution on most recent CT scan - Considered SQ Lovenox due to patient's underlying malignancy, however due to recent retroperitoneal bleed and hypervascular liver lesions and discussion with Dr You, decided to use Coumadin for ease of reversibility in the event of re-bleeding. Discussed the risk of anticoagulant/bleeding with the patient and his daughter because due to his recent retroperitoneal bleed and hypervascular hepatic mass. Pt understands why we choose the coumadin over the lovenox, in case there is bleeding that we can reverse it easily. -Continue IV heparin drip, continue on coumadin 5 mg. INR 2.2 (Goal : 2-2.5). Discontinue IV Heparin today. -Case discussed by Dr Hamm with Dr. You Hematology who recommended coumadin. Dr Hamm discussed case with Vascular surgery Dr. Gunn's PA Ashia. Per Dr Gunn since there is possible involvement of the IVC from the recent CT abdomen report, he would not place an IVC filter. -Work up- B/L doppler US of lower extremity was negative for DVT NAUSEA/VOMITING/DIARRHEA- Resolving New onset Gastroenteritis ? Started just 2 days ago, nausea, vomiting spontaneously resolved, diarrhea- improved but still has 3-4 episodes Chemotherapy medication could be contributing as well. Dr You aware. -Tolerating regular diet well -C diff - negative -IV zofran PRN -Monitor HYPOKALEMIA Secondary to N/V/D -Replaced -Monitor K, Mg RIGHT PLEURAL EFFUSION - US showed Small right pleural effusion with an estimated volume of 482 cc. - Asymptomatic HX METASTATIC HEPATOCELLULAR CARCINOMA - Follows with Dr. You - continue oral Nexavar- can cause N/V/Diarrhea as well, but as sudden in onset and improved within 24 hours while continuing the medication, less likely causing it. Though if persists, needs to be addressed outpatient. Dr You aware- follow up outpatient HEMOCHROMATOSIS - receives phlebotomy - hgb stable HTN - Stable - Continue amlodipine, carvedilol, and lisinopril /HCTZ HYPOTHYROIDISM - Continue levothyroxine DVT PROPHYLAXIS - IV Heparin drip/Coumadin CODE STATUS FULL CODE DISPOSITION Ambulating well Ok to discharge home today Eager to be discharged. Discussed with /daughter by bedside yesterday Vital Signs: Date Time Temp Pulse Resp B/P Pulse Ox O2 Delivery O2 Flow Rate FiO2 08/08/16 08:00 Room Air 08/08/16 07:10 36.5 70 18 113/72 93 08/08/16 04:21 36.5 67 18 122/63 91 Room Air 08/08/16 04:00 Room Air 08/08/16 00:00 Room Air 08/07/16 23:35 36.4 67 18 124/65 94 Room Air 08/07/16 21:24 138/73 08/07/16 20:17 36.6 77 18 121/75 94 Room Air 08/07/16 20:00 95 Room Air 08/07/16 16:09 36.3 73 18 124/76 95 Room Air 08/07/16 16:00 94 Room Air 08/07/16 12:00 92 Room Air 08/07/16 11:32 36.7 74 18 118/72 92 Lab Results: Results Past 24 Hours Test 08/08/16 05:10 Range/Units White Blood Count 5.69 4.8-10.8 K/uL Red Blood Count 4.51 4.7-6.1 M/uL Hemoglobin 14.2 14.0-18.0 g/dL Hematocrit 41.1 42-52 % Mean Corpuscular Volume 91.1 80-100 fL Mean Corpuscular Hemoglobin 31.5 25-34 pg Mean Corpuscular Hemoglobin Concent 34.5 32-36 g/dl Platelet Count 182 130-400 K/uL Mean Platelet Volume 10.7 7.4-10.4 fL Neutrophils (%) (Auto) 49.0 % Lymphocytes (%) (Auto) 25.3 % Monocytes (%) (Auto) 12.8 % Eosinophils (%) (Auto) 12.3 % Basophils (%) (Auto) 0.4 % Neutrophils # (Auto) 2.79 1.4-6.5 K/uL Lymphocytes # (Auto) 1.44 1.2-3.4 K/uL Monocytes # (Auto) 0.73 0.11-0.59 K/uL Eosinophils # (Auto) 0.70 0-0.5 K/uL Basophils # (Auto) 0.02 0-0.2 K/uL RDW Standard Deviation 48.7 36.4-46.3 fL RDW Coefficient of Variation 14.5 11.5-14.5 % Immature Granulocyte % (Auto) 0.2 % Immature Granulocyte # (Auto) 0.01 0.00-0.02 K/uL Prothrombin Time 24.4 9.0-12.0 SECONDS Prothromb Time International Ratio 2.2 0.9-1.1 Activated Partial Thromboplast Time 74.4 21.0-31.0 SECONDS Partial Thromboplastin Ratio 2.9 Sodium Level 140 136-145 mmol/L Potassium Level 3.5 3.5-5.1 mmol/L Chloride Level 104 98-107 mmol/L Carbon Dioxide Level 27 21-32 mmol/L Anion Gap 9.0 3-11 mmol/L Blood Urea Nitrogen 21 7-18 mg/dl Creatinine 0.96 0.60-1.40 mg/dl Est Creatinine Clear Calc Drug Dose 73.9 ml/min Estimated GFR () 89.9 Estimated GFR (Non- 77.6 BUN/Creatinine Ratio 21.6 10-20 Random Glucose 99 70-99 mg/dl Calcium Level 7.9 8.5-10.1 mg/dl Magnesium Level 2.4 1.8-2.4 mg/dl
[2016-08-08] MEDS ORDERED: CMD5 PO (09:36)
--- NOTE | 2016-08-08 09:39 | Discharge Instructions ---
Discharge Instructions Admission Reason for Admission: Pulmonary Embolism Discharge Discharge Diagnosis / Problem: 1. Pulmonary embolism Discharge Goals Goal(s): Diagnostic testing, Therapeutic intervention Activity Recommendations Activity Limitations: resume your previous activity . Instructions / Follow-Up Instructions / Follow-Up MEDICATION CHANGES: 1. New medication: Coumadin 5 mg daily till further instructed by coumadin clinic. INR today is 2.2. MONITOR INR to be monitored at coumadin clinic and dose to be adjusted accordingly FOLLOW UP 1. Dr Miller 08/12/16 at 12:50 PM 2. Coumadin clinic. You will receive a call for appt date/time Current Hospital Diet Patient's current hospital diet: AHA Diet (Heart Healthy) Discharge Diet Recommended Diet: AHA Diet (Heart Healthy), Low Sodium Diet (2gm Na) Pending Studies Studies pending at discharge: no Medical Emergencies . Who to Call and When: Medical Emergencies: If at any time you feel your situation is an emergency, please call 911 immediately. . Non-Emergent Contact Non-Emergency issues call your: Primary Care Provider . . "Provider Documentation" section prepared by Janny Urena. VTE Core Measure Inpt VTE Proph given/why not?: Other Anticoagulation (IV Heparin/Coumadin)
--- NOTE | 2016-08-08 09:44 | Discharge Summary ---
Discharge Summary Admission Date: Aug 01, 2016 at 21:11 Discharge Date: Aug 08, 2016 Discharge Disposition: Home Principal Diagnosis: 1. Bilateral Pulmonary Embolism 2. Hypokalemia 3. Nausea, vomiting, diarrhea, possible gastroenteritis, c diff ruled out Secondary Diagnoses/Problems: 1. Metastatic hepatocellular carcinoma 2. Hemochromatosis 3. Hypothyroidism 4. Hypertension Procedures: Tele monitoring IV Heparin Drip Coumadin CXR CT chest US chest US duplex Consultations: None Pending Studies/Follow-Up: Instructions / Follow-Up MEDICATION CHANGES: 1. New medication: Coumadin 5 mg daily till further instructed by coumadin clinic. INR today is 2.2. MONITOR INR to be monitored at coumadin clinic and dose to be adjusted accordingly FOLLOW UP 1. Dr Miller 08/12/16 at 12:50 PM 2. Coumadin clinic. You will receive a call for appt date/time Medication Reconciliation New Medications: Warfarin Sod (Coumadin) 5 Mg Tab 5 MG PO DAILY@16 for 14 Days, #14 TAB Continued Medications: Amlodipine (Norvasc) 5 Mg Tab 5 MG PO BID, TAB Baclofen (Lioresal) 10 Mg Tab 10 MG PO Q8 PRN for hiccups, #30 TAB 1 Refill Carvedilol (Coreg) 6.25 Mg Tab 6.25 MG PO BID, TAB Finasteride (Proscar) 5 Mg Tab 5 MG PO DAILY, TAB Levothyroxine Sodium (Synthroid) 112 Mcg Tab 112 MCG PO DAILY, TAB Lisinopril/Hctz (Zestoretic 20MG/12.5MG) Tab 1 TABS PO DAILY, TAB Tamsulosin Hcl (Flomax) 0.4 Mg Cap 0.4 MG PO DAILY, CAP [Nexavar] () 200 MG 400 MG PO BID Admission Information HPI (per Admitting provider): HISTORY OF PRESENT ILLNESS: Medical history significant for metastatic hepatocellular carcinoma sp partial hepatic lobectomy 08/2015 at [facility], ongoing chemotherapy, hemochromatosis, hypertension, past tobacco abuse, arthritis, history of retroperitoneal hemorrhage. Recent confinement 03/2016 for retroperitoneal hemorrhage. Hg improved wo intervention. Unclear etiology or source at that time. Patient subsequently discharged home. The last few weeks patient noted increasing shortness of breath, occasional pleuritic chest discomfort and leg discomfort. No fever, no chills, no cough symptoms. The patient sent to the Emergency Room. Hospital Course BILATERAL PULMONARY EMBOLISM : - Mostly due to underlying malignancy - History of retroperitoneal bleed 03/2016 with resolution on most recent CT scan - Considered SQ Lovenox due to patient's underlying malignancy, however due to recent retroperitoneal bleed and hypervascular liver lesions and discussion with Dr You, decided to use Coumadin for ease of reversibility in the event of re-bleeding. Discussed the risk of anticoagulant/bleeding with the patient and his daughter because due to his recent retroperitoneal bleed and hypervascular hepatic mass. Pt understands why we choose the coumadin over the lovenox, in case there is bleeding that we can reverse it easily. -Continue IV heparin drip, continue on coumadin 5 mg. INR 2.2 (Goal : 2-2.5). Discontinue IV Heparin today. -Case discussed by Dr Hamm with Dr. You Hematology who recommended coumadin. Dr Hamm discussed case with Vascular surgery Dr. Gunn's PA Ashia. Per Dr Gunn since there is possible involvement of the IVC from the recent CT abdomen report, he would not place an IVC filter. -Work up- B/L doppler US of lower extremity was negative for DVT NAUSEA/VOMITING/DIARRHEA- Resolving New onset Gastroenteritis ? Started just 2 days ago, nausea, vomiting spontaneously resolved, diarrhea- improved but still has 3-4 episodes Chemotherapy medication could be contributing as well. Dr You aware. -Tolerating regular diet well -C diff - negative -IV zofran PRN -Monitor HYPOKALEMIA Secondary to N/V/D -Replaced -Monitor K, Mg RIGHT PLEURAL EFFUSION - US showed Small right pleural effusion with an estimated volume of 482 cc. - Asymptomatic HX METASTATIC HEPATOCELLULAR CARCINOMA - Follows with Dr. You - continue oral Nexavar- can cause N/V/Diarrhea as well, but as sudden in onset and improved within 24 hours while continuing the medication, less likely causing it. Though if persists, needs to be addressed outpatient. Dr You aware- follow up outpatient HEMOCHROMATOSIS - receives phlebotomy - hgb stable HTN - Stable - Continue amlodipine, carvedilol, and lisinopril /HCTZ HYPOTHYROIDISM - Continue levothyroxine DVT PROPHYLAXIS - IV Heparin drip/Coumadin CODE STATUS FULL CODE DISPOSITION Ambulating well Ok to discharge home today Eager to be discharged. Discussed with /daughter by bedside yesterday Total time spent on discharge = 38 minutes This includes examination of the patient, discharge planning, medication reconciliation, and communication with other providers. Discharge Instructions Discharge Diagnosis / Problem: 1. Pulmonary embolism Discharge Goals Goal(s): Diagnostic testing, Therapeutic intervention Activity Recommendations Activity Limitations: resume your previous activity . Instructions / Follow-Up Instructions / Follow-Up MEDICATION CHANGES: 1. New medication: Coumadin 5 mg daily till further instructed by coumadin clinic. INR today is 2.2. MONITOR INR to be monitored at coumadin clinic and dose to be adjusted accordingly FOLLOW UP 1. Dr Miller 08/12/16 at 12:50 PM 2. Coumadin clinic. You will receive a call for appt date/time Current Hospital Diet Patient's current hospital diet: AHA Diet (Heart Healthy) Discharge Diet Recommended Diet: AHA Diet (Heart Healthy), Low Sodium Diet (2gm Na) Pending Studies Studies pending at discharge: no Medical Emergencies . Who to Call and When: Medical Emergencies: If at any time you feel your situation is an emergency, please call 911 immediately. . Non-Emergent Contact Non-Emergency issues call your: Primary Care Provider . . "Provider Documentation" section prepared by Janny Urena. VTE Core Measure Inpt VTE Proph given/why not?: Other Anticoagulation (IV Heparin/Coumadin)
[2016-08-08 09:53] VITALS: BP 113/72; PULSE 70; TEMP 36.5; O2SAT 93
[2016-08-08] MEDS ORDERED: ONDA4TAB65 PO (10:56)
[2016-11-23] MEDS ORDERED: FINA5TAB PO (01:29)
[2016-11-23] MEDS ORDERED: LEVO112T2 PO (01:31)
[2016-11-23] MEDS ORDERED: CARV6.252 PO (01:31)
== END 2016-08-08 10:51 | disposition home or self-care (01) | DRG 435 ==
LOC: ENRESERVTM → ENRESERVDT → C.EDB 15:35 → C.MED 21:11
PROVIDERS: ADMIT Internal Medicine; ATTEND Internal Medicine
DX: C22.0 Liver cell carcinoma (principal); I26.99 Other pulmonary embolism without acute cor pulmonale; J90 Pleural effusion, not elsewhere classified; I10 Essential (primary) hypertension; E83.119 Hemochromatosis, unspecified; Z87.891 Personal history of nicotine dependence; Z96.659 Presence of unspecified artificial knee joint; E87.6 Hypokalemia; K52.9 Noninfective gastroenteritis and colitis, unspecified; E03.9 Hypothyroidism, unspecified; R06.09 Other forms of dyspnea

== ENCOUNTER → 2016-08-01 | Outpatient (CLI) | payer OTHER, MEDICARE ==
[~2016-08-01] MED LIST: ACETAMINOPHEN 325 MG TAB PO PRN; AMLO-110 PO; AMLODIPINE BESYLATE 5 MG TAB PO SCH; BACL10TA PO; BACLOFEN 10 MG TAB PO PRN; BUME1TAB PO; CARV6.252 PO; CARVEDILOL 6.25 MG TAB PO SCH; CMD5 PO; FINA5TAB PO; FINASTERIDE 5 MG TAB PO SCH; HEPARIN IV LOW DOSE NO BOLUS SCH; LEVO112T2 PO; LEVOTHYROXINE 112 MCG TAB PO SCH; LISI-787 PO; LISINOPRIL 20 MG TAB PO SCH; LORAZEPAM 2 MG/ML 1 ML VIAL IV PRN; MoRPHine SULFATE 2 MG/ML CARP IV PRN; NEXAVAR PO; NEXAVAR PO SCH; NSS + 20MEQ KCL 1000ML 1,000 ML IV ONE; ONDA4TAB46 PO; ONDA4TAB65 PO; ONDANSETRON INJ 2 MG/ML 2 ML VIAL IV PRN; POTA-74 PO; POTA1POW PO; POTA1TAB97 PO; SPIR25TA PO; TAMS0.4C38 PO; TAMSULOSIN HCL 0.4 MG CAP PO SCH; TRAMADOL HCL 50 MG TAB PO PRN; WARF5TAB90 PO
--- NOTE | 2016-08-01 18:17 | DIAGNOSTIC IMAGING REPORT ---
ADDENDUM Comparison made to a [facility] abdominal CT on 07/10/2016. The right-sided pleural effusion has increased in size. The hepatic masses and anterior abdominal wall metastatic foci are not significant changed. Electronically signed by: Omi Rivera M.D. 08/02/2016 4:12 PM Dictated Date/Time: 08/02/2016 4:12 PM ORIGINAL REPORT ABDOMINAL CT WITH AND WITHOUT INTRAVENOUS CONTRAST, LIVER PROTOCOL HISTORY: Hepatocellular carcinoma. TECHNIQUE: Multiaxial CT images of the abdomen were performed both before and after the intravenous administration of contrast to evaluate the liver. COMPARISON STUDY: Abdomen and pelvis CT 04/08/2016. FINDINGS: Small to moderate right pleural effusion has increased in size. The right retroperitoneal/perinephric hemorrhage has improved/resolved within the interval. There is only a small amount of retroperitoneal fluid remaining which favors a resolving hematoma. Heterogeneous opacification of the inferior aspect of the IVC favors mixing of contrast. There is near complete replacement of the liver with multiple hypervascular hepatic masses. This appears to have progressed in the interval. Dominant mass within the right hepatic lobe measures 14 cm. This results in severe compression with possible invasion into the intrahepatic IVC. The main portal vein is patent. The gallbladder is surgically absent. Partially cystic right suprarenal mass has decreased in size likely a result of the resolving hemorrhage. This currently measures 9.1 cm, previously measuring 11 cm. Cystic component favors the resolving hematoma. This could be an exophytic lesion from the liver or an adrenal metastasis. Surgical clips within the central aspect of the liver. Peripherally calcified cyst within the lower pole the right kidney remains unchanged. There is a 1 cm cyst within the upper pole the left kidney. No hydronephrosis. Normal left adrenal gland. The visualized loops of bowel show no wall thickening or obstruction. Stable subcentimeter retroperitoneal and mediastinal lymph nodes. Multiple new soft tissue masses within the right anterior abdominal wall at the site of incision. These are consistent with metastatic foci. The dominant lesion measures 2.8 cm. No suspicious lytic or blastic osseous lesions. IMPRESSION: 1. The liver has been almost completely replaced with multiple hypervascular hepatic masses consistent with the patient's history of hepatocellular carcinoma. The dominant hepatic mass within the right hepatic lobe results in severe narrowing with possible invasion into the intrahepatic IVC. The main portal vein is patent. 2. Multiple new soft tissue nodules within the right anterior abdominal wall incision consistent with metastatic foci. 3. Significant improvement/resolution within the right perinephric/retroperitoneal hemorrhage. Small moderate right pleural effusion has increased in size. Electronically signed by: Omi Rivera M.D. 08/01/2016 6:16 PM Dictated Date/Time: 08/01/2016 6:05 PM
== END | disposition home or self-care (01) ==
LOC: C.CTS 16:50
PROVIDERS: ATTEND Internal Medicine Hematology & Oncology
DX: C22.0 Liver cell carcinoma (principal)

== ENCOUNTER → 2016-08-01 | Outpatient (CLI) | payer OTHER, MEDICARE ==
[~2016-08-01] MED LIST changes: -ACETAMINOPHEN 325 MG TAB PO PRN; -AMLODIPINE BESYLATE 5 MG TAB PO SCH; -BACLOFEN 10 MG TAB PO PRN; -CARVEDILOL 6.25 MG TAB PO SCH; -FINASTERIDE 5 MG TAB PO SCH; -HEPARIN IV LOW DOSE NO BOLUS SCH; -LEVOTHYROXINE 112 MCG TAB PO SCH; -LISINOPRIL 20 MG TAB PO SCH; -LORAZEPAM 2 MG/ML 1 ML VIAL IV PRN; -MoRPHine SULFATE 2 MG/ML CARP IV PRN; -NEXAVAR PO SCH; -NSS + 20MEQ KCL 1000ML 1,000 ML IV ONE; -ONDANSETRON INJ 2 MG/ML 2 ML VIAL IV PRN; -TAMSULOSIN HCL 0.4 MG CAP PO SCH; -TRAMADOL HCL 50 MG TAB PO PRN
== END | disposition home or self-care (01) ==
LOC: C.LABSPEC 12:12
PROVIDERS: ATTEND Internal Medicine Hematology & Oncology
DX: R06.09 Other forms of dyspnea (principal)

== ENCOUNTER 2016-11-23 20:52 | Emergency (ER) | payer OTHER, MEDICARE ==
[~2016-11-23] VITALS: Ht 177.8 cm; Wt 96.4 kg
[~2016-11-23 20:52] MED LIST changes: +CARV6.252 PO; +CMD5 PO; +FINA5TAB PO; +LEVO112T2 PO; +NEXAVAR PO; -POTA1TAB97 PO
[2016-11-23 21:07] VITALS: TEMP 36.5; Ht 177.8 cm; Wt 96.4 kg
[2016-11-23] MEDS ORDERED: SODIUM CHLORIDE 0.9% 1000ML 1,000 ML IV ONE (21:20)
[2016-11-23] MEDS ORDERED: ONDANSETRON INJ 2 MG/ML 2 ML VIAL IV STA (21:26)
[2016-11-23 21:32] VITALS: O2SAT 94
[2016-11-23 21:41] LABS: ISTAT HEMOGLOBIN 11.9 g/dl (14.0-18.0); ISTAT IONIZED CALCIUM 1.16 mmol/l (1.12-1.32)
[2016-11-23] MEDS: MoRPHine SULFATE 4 MG/ML 1 ML CARP\\VIAL IV PRN ×2 (21:41→22:49)
[2016-11-23 21:47] LABS: BASO % 1.7 %; COMPLETE YES; EOS % 2.9 %; HEMATOCRIT 33.8 % (42-52); IG% 0.2 %; LYMPH % 16.2 %; LYMPH ABS # 0.94 K/uL (1.2-3.4); MEAN CELL VOLUME 96.3 fL (80-100); MEAN CORPUSCULAR HEMOGLOBIN 32.2 pg (25-34); MEAN CORPUSCULAR HGB CONC 33.4 g/dl (32-36); MEAN PLATELET VOLUME 11.2 fL (7.4-10.4); MONO % 16.6 %; NEUT % 62.4 %; PLATELET COUNT 312 K/uL (130-400); RED BLOOD COUNT 3.51 M/uL (4.7-6.1)
--- NOTE | 2016-11-23 21:50 | DIAGNOSTIC IMAGING REPORT ---
SINGLE VIEW CHEST CLINICAL HISTORY: Sepsis. FINDINGS: An AP, portable, upright chest radiograph is compared to chest x-ray and chest CT dated to. The examination is degraded by portable technique, apical lordotic positioning, and patient rotation. The heart is top normal for projection. The pulmonary vasculature is noncongested. Chronic interstitial thickening and elevation of right hemidiaphragm are again noted. There is a right pleural effusion with right basilar consolidation. This is similar to prior studies. Dependent airspace opacities are also seen at the left lung base. No pneumothorax is seen. The skeletal structures are osteopenic. The bony thorax is grossly intact. IMPRESSION: 1. There is a right pleural effusion, similar in appearance to the July 2016 examinations. 2. There are bibasilar airspace opacities. This likely represents atelectasis. Cortical clinically for evidence of a superimposed infectious/inflammatory pneumonitis. Electronically signed by: Mik Leone M.D. 11/23/2016 9:48 PM Dictated Date/Time: 11/23/2016 9:45 PM
[2016-11-23 21:59] LABS: INR 2.4 (0.9-1.1); PARTIAL THROMBOPLASTIN RATIO 1.5; PROTHROMBIN TIME (PATIENT) 26.9 SECONDS (9.0-12.0)
[2016-11-23 22:07] LABS: ALT/SGPT 31 U/L (12-78); BLOOD UREA NITROGEN 38 mg/dl (7-18); BUN/CREATININE RATIO 19.8 (10-20); C-REACTIVE PROTEIN 0.89 mg/dl (0-0.29); CARBON DIOXIDE 26 mmol/L (21-32); CHLORIDE 104 mmol/L (98-107); GLUCOSE 160 mg/dl (70-99); MAGNESIUM 2.1 mg/dl (1.8-2.4); POTASSIUM 4.9 mmol/L (3.5-5.1); SODIUM 139 mmol/L (136-145)
[2016-11-23 22:08] LABS: URINE APPEARANCE CLOUDY (CLEAR); URINE COLOR DK YELLOW; URINE NITRITE NEG (NEG); URINE SPECIFIC GRAVITY 1.024 (1.000-1.030); UROBILINOGEN NEG (NEG)
[2016-11-23 22:11] LABS: ALB/GLOB RATIO 0.6 (0.9-2); ALKALINE PHOSPHATASE 192 U/L (45-117); AST/SGOT 158 U/L (15-37); CKMB/CK RATIO 2.1 (0-3.0); PHOSPHORUS 4.1 mg/dl (2.5-4.9)
[2016-11-23] MEDS ORDERED: SPIR25TA PO (22:13)
[2016-11-23] MEDS ORDERED: WARF5TAB90 PO ×2 (22:13→22:20)
[2016-11-23] MEDS ORDERED: BUME1TAB PO (22:13)
[2016-11-23] MEDS ORDERED: BACL10TA PO (22:13)
[2016-11-23] MEDS ORDERED: ONDA4TAB46 PO (22:20)
[2016-11-23] MEDS ORDERED: POTA1POW PO (22:20)
[2016-11-23] MEDS ORDERED: TAMS0.4C38 PO (22:20)
[2016-11-23 22:21] LABS: MANUAL MICROSCOPIC REQUIRED? NO; REVIEW REQ? YES; URINE BILIRUBIN NEG (NEG)
[2016-11-23] MEDS ORDERED: PROTHROMBIN COMP CONC- KCENTRA 2,000 UNIT in SYRINGE 0 ML IV STA ×2 (22:26→22:35)
[2016-11-23 22:28] LABS: CALCIUM 8.5 mg/dl (8.5-10.1)
[2016-11-23] MEDS ORDERED: PHYTONADIONE INJ 10 MG in SODIUM CHLORIDE 0.9% 50ML 50 ML IV ONE (22:30)
--- NOTE | 2016-11-23 22:32 | DIAGNOSTIC IMAGING REPORT ---
CT SCAN OF THE ABDOMEN AND PELVIS WITHOUT IV CONTRAST CLINICAL HISTORY: Generalized abdominal pain. Hypotension. History of hepatocellular carcinoma. COMPARISON STUDY: Abdominal CT dated 08/05/16. TECHNIQUE: CT scan of the abdomen and pelvis is performed from the lung bases to the proximal femora. Images are reviewed in the axial, sagittal, and coronal planes. IV contrast was not administered for this examination as per the referring clinician. Note that the examination was performed in significantly suboptimal fashion without oral and IV contrast. Automated dose control exposure was utilized. CT DOSE: 886.61 mGy.cm FINDINGS: Lung bases: The heart is normal in size and without pericardial effusion. The coronary arteries are densely calcified. There is a moderate right pleural effusion with associated right basilar consolidation. Liver: The unenhanced liver is enlarged, measuring 26 cm in length. The liver is markedly heterogeneous in attenuation. Findings suggest previous wedge resection in the anterior right lobe. There are large low-attenuation mass lesions identified in the liver. A lesion in the right lobe measures at least 12 cm. A lesion in the left lobe measures at least 9 cm. Numerous additional smaller lesions are identified. There is central intrahepatic biliary ductal dilatation. Gallbladder: Surgically absent noting clips in the gallbladder fossa. Spleen: Normal in size and attenuation. Pancreas: The unenhanced pancreas is atrophic and grossly unremarkable. Adrenal glands: A right suprarenal mass lesion is similar to previous and measures 9 cm. It is unclear if this is related to the right adrenal gland. Left adrenal gland is unremarkable. Kidneys: The unenhanced kidneys are atrophic and without hydronephrosis. There are no renal calculi identified. A 6.5 cm peripherally calcified cyst arises from the lower pole the right kidney. Abdominal vasculature: The abdominal aorta is normal in course and caliber noting moderate atherosclerotic calcification. Bowel: The small bowel and colon are normal in course and caliber. The appendix is not identified. Peritoneum: There is a moderate volume of abdominopelvic ascites. There is hyperdense fluid seen along the left margin of the liver, posterior to the liver, and in the pelvis consistent with hemoperitoneum. This likely represents a ruptured hepatocellular carcinoma. No acute peritoneal free air is seen. Numerous implants are again seen along the ventral abdominal wall consistent with metastatic disease. A food service representative lesion in the upper abdomen as seen on image #145 and measures 3.3 cm. A lesion on image #232 measures up to 3.6 cm. There is ascitic fluid contained within a right upper quadrant abdominal wall hernia on image #255. Lymphadenopathy: Nonvisualized and not well assessed without IV contrast. Pelvic viscera: The prostate gland is enlarged and heterogeneous, measuring 5.1 cm diameter. The bladder is decompressed and grossly unremarkable. Skeletal structures: The skeletal structures are osteopenic. There is moderate lumbosacral spondylosis. Degenerative changes seen in the sacroiliac joints and hips. There is a new osteolytic lesion identified in the body of L5 on axial image #330.. IMPRESSION: 1. Suboptimal examination without oral and IV contrast. 2. The liver is enlarged and infiltrated by numerous hepatic masses. This is similar to previous and consistent with the history of hepatocellular carcinoma. 3. There is a moderate volume of abdominopelvic ascites which has increased from 08/05/2016. 4. There is a moderate volume of hyperdense intraperitoneal fluid consistent with hemoperitoneum. This likely represents a ruptured hepatocellular carcinoma. 5. Peritoneal metastatic lesions and a right suprarenal mass lesion are again noted and similar to previous. 6. Moderate right pleural effusion with right basilar consolidation. 7. A new osteolytic lesion is suggested in the body of L5. This likely represents a bony metastasis. 8. Additional findings as above. Findings were called to Dr. Dickerson in the emergency department on 11/23/2016 and 22:20. Electronically signed by: Mik Leone M.D. 11/23/2016 10:31 PM Dictated Date/Time: 11/23/2016 10:17 PM
[2016-11-23] MEDS ORDERED: POTA-74 PO (22:33)
[2016-11-23 22:38] LABS: URINE MUCUS PRESENT (NONE PRSENT)
[2016-11-23 22:43] LABS: ZZUR CULT IF INDIC CLEAN CATCH YES
[2016-11-23 22:48] LABS: VENOUS BLOOD GAS PCO2 43 mmHg (38.0-50.0); VENOUS BLOOD GAS PO2 54 mmHg
[2016-11-23 23:00] VITALS: BP 89/42; PULSE 71; O2SAT 95
[2016-11-23] MEDS ORDERED: SODIUM CHLORIDE 0.9% 1000ML 1,000 ML IV STA (23:03)
--- NOTE | 2016-11-23 23:14 | EMERGENCY ROOM VISIT NOTE ---
History Report prepared by Aleksandar: Ursula Oden Under the Supervision of: Dr. Clinton Dickerson D.O. First contact with patient: 21:20 Chief Complaint: ABDOMINAL PAIN Stated Complaint: ABD PAIN History of Present Illness The patient is a 76 year old male who presents to the Emergency Room with complaints of an episode of abdominal pain starting six hours ago. The patient reports that he is currently not experiencing nausea, but was earlier. The patient complains of leg swelling and urinary symptoms. The patient denies hematochezia, melena, chest pain, and vomiting. The patient reports a history of hepatocellular liver cancer and high blood pressure. Source of History: patient Onset: six hours ago Position: abdomen Quality: other (global) Timing: other (episode) Associated Symptoms: + nausea, + urinary symptoms, No chest pain, No hematochezia, No vomiting Note: The patient complains of leg swelling. Review of Systems See HPI for pertinent positives & negatives. A total of 10 systems reviewed and were otherwise negative. Past Medical & Surgical Medical Problems: (1) BPH (benign prostatic hyperplasia) (2) Dyslipidemia (3) Hemochromatosis (4) Hepatocellular carcinoma (5) HTN (hypertension) (6) Hypothyroidism (7) Pulmonary embolism Surgical Problems: (1) History of left knee replacement (2) History of resection of liver (3) History of total right knee replacement (4) S/P cataract surgery (5) S/P tonsillectomy Family History Cancer Hypertension Kidney stones Lung disease Social History Smoking Status: Never Smoker Alcohol Use: none Drug Use: none Marital Status: Housing Status: lives with family Occupation Status: retired Current/Historical Medications Scheduled Bumetanide (Bumex), 1 MG PO DAILY Carvedilol (Coreg), 6.25 MG PO BID Finasteride (Proscar), 5 MG PO DAILY Levothyroxine Sodium (Synthroid), 112 MCG PO DAILY Potassium Chloride (Potassium Chloride Er), 5 MEQ PO DAILY Spironolactone (Aldactone), 25 MG PO DAILY Tamsulosin Hcl (Flomax), 0.4 MG PO DAILY Warfarin Sodium (Coumadin), 12.5 MG PO MON & FRI Warfarin Sodium (Coumadin), 10 MG PO [id number] Scheduled PRN Baclofen (Lioresal), 10 MG PO Q8 PRN for hiccups Ondansetron Hcl (Zofran), 4 MG PO Q12 PRN for Nausea Allergies Coded Allergies: Iodinated Diagnostic Agents (Verified Allergy, Unknown, HIVES, 08/01/16) Physical Exam Vital Signs Date Time Temp Pulse Resp B/P Pulse Ox O2 Delivery O2 Flow Rate FiO2 11/23/16 23:00 71 18 89/42 95 Room Air 11/23/16 22:51 68 18 90/61 94 Room Air 11/23/16 22:27 77 24 88/53 98 Nasal Cannula 2.0 11/23/16 22:07 81/59 11/23/16 22:02 81 19 74/38 90 11/23/16 22:01 77/45 11/23/16 21:54 96/55 11/23/16 21:52 76 24 94 11/23/16 21:42 78 29 93 11/23/16 21:38 92/72 11/23/16 21:32 94 Room Air 11/23/16 21:32 83 30 94 11/23/16 21:31 97/50 11/23/16 21:22 82 24 83/47 11/23/16 21:19 84 11/23/16 21:16 82/55 11/23/16 21:07 36.5 87 18 68/47 91 Room Air Physical Exam GENERAL: Patient is awake, alert, and in no acute distress. Patient is anxious and uncomfortable appearing. EYES: The conjunctivae are clear. The pupils are equal, round and reactive. [place] scleral noted. EARS, NOSE, MOUTH AND THROAT: The nose is without any evidence of any deformity. Mucous membranes are dry tongue is midline NECK: The neck is nontender and supple. RESPIRATORY: Diminished sounds throughout. Rales at both bases. Shallow respiration noted. CARDIOVASCULAR: Regular rate and rhythm noted there no murmurs rubs or gallops normal S1 normal S2 GASTROINTESTINAL: Bowel sounds are present in all quadrants. Abdomen is moderately distended and diffusely tender. No specific guarding or rigidity. MUSCULOSKELETAL/EXTREMITIES: There is no evidence of gross deformity full range of motion is noted in the hips and shoulders SKIN: There is no obvious evidence of any rash. There are no petechiae, pallor or cyanosis noted. Significant lower extremity edema bilaterally, skin warm and dry, pulses symmetric. NEUROLOGIC: Patient is awake alert and oriented x3 strength is symmetric patellar reflexes are 2+ bilaterally Medical Decision & Procedures ER Provider Diagnostic Interpretation: Radiology results as stated below per my review and radiologist interpretation: CT SCAN OF THE ABDOMEN AND PELVIS WITHOUT IV CONTRAST CLINICAL HISTORY: Generalized abdominal pain. Hypotension. History of hepatocellular carcinoma. COMPARISON STUDY: Abdominal CT dated 08/05/16. TECHNIQUE: CT scan of the abdomen and pelvis is performed from the lung bases to the proximal femora. Images are reviewed in the axial, sagittal, and coronal planes. IV contrast was not administered for this examination as per the referring clinician. Note that the examination was performed in significantly suboptimal fashion without oral and IV contrast. Automated dose control exposure was utilized. CT DOSE: 886.61 mGy.cm FINDINGS: Lung bases: The heart is normal in size and without pericardial effusion. The coronary arteries are densely calcified. There is a moderate right pleural effusion with associated right basilar consolidation. Liver: The unenhanced liver is enlarged, measuring 26 cm in length. The liver is markedly heterogeneous in attenuation. Findings suggest previous wedge resection in the anterior right lobe. There are large low-attenuation mass lesions identified in the liver. A lesion in the right lobe measures at least 12 cm. A lesion in the left lobe measures at least 9 cm. Numerous additional smaller lesions are identified. There is central intrahepatic biliary ductal dilatation. Gallbladder: Surgically absent noting clips in the gallbladder fossa. Spleen: Normal in size and attenuation. Pancreas: The unenhanced pancreas is atrophic and grossly unremarkable. Adrenal glands: A right suprarenal mass lesion is similar to previous and measures 9 cm. It is unclear if this is related to the right adrenal gland. Left adrenal gland is unremarkable. Kidneys: The unenhanced kidneys are atrophic and without hydronephrosis. There are no renal calculi identified. A 6.5 cm peripherally calcified cyst arises from the lower pole the right kidney. Abdominal vasculature: The abdominal aorta is normal in course and caliber noting moderate atherosclerotic calcification. Bowel: The small bowel and colon are normal in course and caliber. The appendix is not identified. Peritoneum: There is a moderate volume of abdominopelvic ascites. There is hyperdense fluid seen along the left margin of the liver, posterior to the liver, and in the pelvis consistent with hemoperitoneum. This likely represents a ruptured hepatocellular carcinoma. No acute peritoneal free air is seen. Numerous implants are again seen along the ventral abdominal wall consistent with metastatic disease. A account manager sales representative lesion in the upper abdomen as seen on image #145 and measures 3.3 cm. A lesion on image #232 measures up to 3.6 cm. There is ascitic fluid contained within a right upper quadrant abdominal wall hernia on image #255. Lymphadenopathy: Nonvisualized and not well assessed without IV contrast. Pelvic viscera: The prostate gland is enlarged and heterogeneous, measuring 5.1 cm diameter. The bladder is decompressed and grossly unremarkable. Skeletal structures: The skeletal structures are osteopenic. There is moderate lumbosacral spondylosis. Degenerative changes seen in the sacroiliac joints and hips. There is a new osteolytic lesion identified in the body of L5 on axial image #330.. IMPRESSION: 1. Suboptimal examination without oral and IV contrast. 2. The liver is enlarged and infiltrated by numerous hepatic masses. This is similar to previous and consistent with the history of hepatocellular carcinoma. 3. There is a moderate volume of abdominopelvic ascites which has increased from 08/05/2016. 4. There is a moderate volume of hyperdense intraperitoneal fluid consistent with hemoperitoneum. This likely represents a ruptured hepatocellular carcinoma. 5. Peritoneal metastatic lesions and a right suprarenal mass lesion are again noted and similar to previous. 6. Moderate right pleural effusion with right basilar consolidation. 7. A new osteolytic lesion is suggested in the body of L5. This likely represents a bony metastasis. 8. Additional findings as above. Findings were called to Dr. Dickerson in the emergency department on 11/23/2016 and 22:20. Electronically signed by: Mik Leone M.D. 11/23/2016 10:31 PM Dictated Date/Time: 11/23/2016 10:17 PM SINGLE VIEW CHEST CLINICAL HISTORY: Sepsis. FINDINGS: An AP, portable, upright chest radiograph is compared to chest x-ray and chest CT dated to. The examination is degraded by portable technique, apical lordotic positioning, and patient rotation. The heart is top normal for projection. The pulmonary vasculature is noncongested. Chronic interstitial thickening and elevation of right hemidiaphragm are again noted. There is a right pleural effusion with right basilar consolidation. This is similar to prior studies. Dependent airspace opacities are also seen at the left lung base. No pneumothorax is seen. The skeletal structures are osteopenic. The bony thorax is grossly intact. IMPRESSION: 1. There is a right pleural effusion, similar in appearance to the July 2016 examinations. 2. There are bibasilar airspace opacities. This likely represents atelectasis. Cortical clinically for evidence of a superimposed infectious/inflammatory pneumonitis. Electronically signed by: Mik Leone M.D. 11/23/2016 9:48 PM Dictated Date/Time: 11/23/2016 9:45 PM Laboratory Results 11/23/16 21:20 Red Blood Count 3.51, Mean Corpuscular Volume 96.3, Mean Corpuscular Hemoglobin 32.2, Mean Corpuscular Hemoglobin Concent 33.4, Mean Platelet Volume 11.2, Neutrophils (%) (Auto) 62.4, Lymphocytes (%) (Auto) 16.2, Monocytes (%) (Auto) 16.6, Eosinophils (%) (Auto) 2.9, Basophils (%) (Auto) 1.7, Neutrophils # (Auto ) 3.62, Lymphocytes # (Auto) 0.94, Monocytes # (Auto) 0.96, Eosinophils # (Auto ) 0.17, Basophils # (Auto) 0.10 11/23/16 21:20 Test 11/23/16 21:20 11/23/16 21:28 11/23/16 21:53 11/23/16 22:40 White Blood Count 5.80 K/uL (4.8-10.8) Red Blood Count 3.51 M/uL (4.7-6.1) Hemoglobin 11.3 g/dL (14.0-18.0) Hematocrit 33.8 % (42-52) Mean Corpuscular Volume 96.3 fL (80-100) Mean Corpuscular Hemoglobin 32.2 pg (25-34) Mean Corpuscular Hemoglobin Concent 33.4 g/dl (32-36) Platelet Count 312 K/uL (130-400) Mean Platelet Volume 11.2 fL (7.4-10.4) Neutrophils (%) (Auto) 62.4 % Lymphocytes (%) (Auto) 16.2 % Monocytes (%) (Auto) 16.6 % Eosinophils (%) (Auto) 2.9 % Basophils (%) (Auto) 1.7 % Neutrophils # (Auto) 3.62 K/uL (1.4-6.5) Lymphocytes # (Auto) 0.94 K/uL (1.2-3.4) Monocytes # (Auto) 0.96 K/uL (0.11-0.59) Eosinophils # (Auto) 0.17 K/uL (0-0.5) Basophils # (Auto) 0.10 K/uL (0-0.2) RDW Standard Deviation 52.5 fL (36.4-46.3) RDW Coefficient of Variation 14.9 % (11.5-14.5) Immature Granulocyte % (Auto) 0.2 % Immature Granulocyte # (Auto) 0.01 K/uL (0.00-0.02) Erythrocyte Sedimentation Rate 10 mm/hr (0-14) Prothrombin Time 26.9 SECONDS (9.0-12.0) Prothromb Time International Ratio 2.4 (0.9-1.1) Activated Partial Thromboplast Time 37.9 SECONDS (21.0-31.0) Partial Thromboplastin Ratio 1.5 Urine Color DK YELLOW Urine Appearance CLOUDY (CLEAR) Urine pH 5.0 (4.5-7.5) Urine Specific [place] 1.024 (1.000-1.030) Urine Protein 2+ (NEG) Urine Glucose (UA) NEG (NEG) Urine Ketones TRACE (NEG) Urine Occult Blood NEG (NEG) Urine Nitrite NEG (NEG) Urine Bilirubin NEG (NEG) Urine Urobilinogen NEG (NEG) Urine Leukocyte Esterase NEG (NEG) Urine WBC (Auto) 1-5 /hpf (0-5) Urine RBC (Auto) 0-4 /hpf (0-4) Urine Hyaline Casts (Auto) 1-5 /lpf (0-5) Urine Epithelial Cells (Auto) 5-10 /lpf (0-5) Urine Bacteria (Auto) 4+ (NEG) Urine Renal Epithelial Cells /lpf (0-5) Urine Pathogenic Casts /lpf (0) Urine Mucus PRESENT (NONE PRSENT) Urine Yeast (Auto) (NONE PRSENT) Est Creatinine Clear Calc Drug Dose 39.7 ml/min Estimated GFR () 39.4 Estimated GFR (Non- 34.0 BUN/Creatinine Ratio 19.8 (10-20) Calcium Level 8.5 mg/dl (8.5-10.1) Phosphorus Level 4.1 mg/dl (2.5-4.9) Magnesium Level 2.1 mg/dl (1.8-2.4) Total Bilirubin 1.4 mg/dl (0.2-1) Aspartate Amino Transf (AST/SGOT) 158 U/L (15-37) Alanine Aminotransferase (ALT/SGPT) 31 U/L (12-78) Alkaline Phosphatase 192 U/L (45-117) Total Creatine Kinase 39 U/L (39-308) Creatine Kinase MB 0.8 ng/ml (0.5-3.6) Creatine Kinase MB Ratio 2.1 (0-3.0) Troponin I < 0.015 ng/ml (0-0.045) C-Reactive Protein 0.89 mg/dl (0-0.29) Pro-B-Type Natriuretic Peptide 440 pg/ml (0-900) Total Protein 6.0 gm/dl (6.4-8.2) Albumin 2.3 gm/dl (3.4-5.0) Globulin 3.7 gm/dl (2.5-4.0) Albumin/Globulin Ratio 0.6 (0.9-2) Lipase 162 U/L (73-393) Bedside Hemoglobin 11.9 g/dl (14.0-18.0) Bedside Hematocrit 35 % (42-52) Bedside Sodium 138 mEq/L (135-144) Bedside Potassium 4.9 mEq/L (3.3-5.0) Bedside Chloride 102 mEq/L (101-112) Bedside Total CO2 25 mEq/l (24-31) Anion Gap 18.0 mmol/L (16-25) Bedside Blood Urea Nitrogen 35 mg/dl (7-18) Bedside Creatinine 2.0 mg/dl (0.6-1.3) Bedside Glucose (other) 165 mg/dl (70-99) Bedside Ionized Calcium ([place]) 1.16 mmol/l (1.12-1.32) Bedside Lactic Acid Venous 1.88 mmol/L (0.90-1.70) Venous Blood pH 7.38 (7.36-7.41) Venous Blood Partial Pressure CO2 43 mmHg (38.0-50.0) Venous Blood Partial Pressure O2 54 mmHg Venous Blood HCO3 25 mmol/L Venous Blood Oxygen Saturation % Venous Blood Base Excess mmol/L Laboratory results per my review. Medications Administered Medications (Trade) Dose Ordered Sig/Rad Route Start Time Stop Time Status Last Admin Dose Admin Sodium Chloride (Nss 1000ml) 1,000 ml @ 999 mls/hr Q1H1M ONCE IV 11/23/16 21:20 11/23/16 22:20 DC 11/23/16 21:31 999 MLS/HR Morphine Sulfate (MoRPHine SULFATE INJ) 4 mg Q15M PRN IV 11/23/16 21:30 12/07/16 21:29 11/23/16 22:49 4 MG Ondansetron HCl 4 mg 4 mg NOW STAT IV 11/23/16 21:26 11/23/16 21:27 DC 11/23/16 21:40 4 MG Phytonadione 10 mg/Sodium Chloride 51 ml @ 102 mls/hr ONE ONCE IV 11/23/16 22:30 11/23/16 22:59 DC 11/23/16 22:49 102 MLS/HR Prothrombin Complex Concent (Human) 2000 unit/ Syringe 80 ml @ 10 mls/min NOW STAT IV 11/23/16 22:35 11/23/16 22:42 DC 11/23/16 23:04 10 MLS/MIN Sodium Chloride (Nss 1000ml) 1,000 ml @ 999 mls/hr Q1H1M STAT IV 11/23/16 23:03 11/24/16 00:03 11/23/16 23:05 999 MLS/HR Procedure Femoral Central Venous Catheter Indication: Acute hemorrhage Catheter Type: triple lumen Location: right femoral vein Verbal consent was obtained after the risks and benefits were explained, including but not limited to intra-abdominal injury, vessel injury, bleeding, scarring, infection, pain, and bone/joint/nerve damage. At this time, the risks of the procedure are less than the risks of NOT performing the procedure. A time out was taken and the correct patient and site identified. The patient was placed in the supine position and the skin was prepped in the standard fashion with chlorhexidine and full sterile drapes applied. The proper landmarks were identified, anesthetized with 1% lidocaine without epinephrine, and the needle was inserted through the skin in the standard fashion. The needle was carefully advanced into blood vessel lumen. The guidewire was placed uneventfully. The vessel is dilated and the catheter was placed. It was sutured into position. There was good blood return from all ports. The patient tolerated the procedure well and there were no complications. ED Course 2118: The patient was evaluated in room B8. A complete history and physical examination were performed. 2119: Ordered NSS 1000 ml @ 999 mls/hr IV. 2125: Ordered Zofran Inj 4 mg IV. 2129: Ordered Morphine Sulfate 4 mg PRN IV pain, Phytonadione 10 mg/Sodium Chloride 51 ml @ 102 mls/hr Protocol IV. 2224: I discussed the patient's case with Dr. Navarro about central dosing. 2231: I discussed the patient's case with Dr. Starr. He recommends the patient be transferred to [facility] in [place]. 2235: Ordered Prothrombin Complex Concent (Human) 2000 unit/Syringe 80 ml @ 10 mls/min Protocol IV. 2258: I discussed the patient's case with Dr. Scanlon. The patient will be transferred and evaluated for further management. Medical Decision Differential diagnosis: Etiologies such as appendicitis, diverticulitis, PUD, biliary pathology, UTI, pancreatitis, obstruction, mesenteric ischemia, aortic pathology, infections, inflammatory bowel disease, renal colic, as well as others were entertained. Nursing notes reviewed. The patient is a 76-year-old male who presented to the emergency department for an evaluation of abdominal discomfort. The patient has been noticing abdominal distention and abdominal discomfort since earlier in the evening. The patient's pain is constant and continues to worsen. The patient states that he is currently on anticoagulation for pulmonary embolism. The patient was found have signs of intraperitoneal hemorrhage on CAT scan the abdomen and pelvis. The patient was treated with IV fluids for hypotension. His abdominal pain was treated with IV pain medication and IV antiemetics. He was reevaluated multiple times. The patient had a central line placed in his right femoral vein. I discussed his case with Dr. Navarro and case central as well as vitamin K were ordered to reverse his Coumadin. It would appear that his bleeding is coming from an area where he had part of his hepatocellular carcinoma removed in the past. I discussed his case with the on-call general surgeon. I also discussed his case with the emergency Department a [facility]. The patient was transferred via helicopter for further stabilization. His hemoglobin was stable at this time but was lower than his most recent hemoglobin from earlier in the year. I discussed the patient's laboratory and radiographic studies with his family members. They're aware of the severity of the patient's symptoms at this time. His blood pressure responded to IV fluids. He was also started on some diuretics earlier in the week by his primary care physician. It is possible this is why his blood pressure and creatinine were affected today. Consults Time Called: 2219 Consulting Physician: Dr. Navarro Returned Call: 2224 I discussed the patient's case with Dr. Navarro about central dosing. Additional Consults: Time Called: 2228 Consulted Physician: Dr. Starr Returned Call: [phone] Additional Comments: I discussed the patient's case with Dr. Starr. He recommends the patient be transferred to [facility] in [place]. Impression Primary Impression: abdominal pain Additional Impressions: Hypotension Intraperitoneal hematoma Anticoagulated on Coumadin Critical Care I have personally spent greater than 45 minutes of critical care time in the direct management of this patient. This includes bedside care, interpretation of diagnostic studies, and testing, discussion with consultants, patient, and family members, and other required patient management activities. This 45 minutes is in excess of all separately billable procedures. Scribe Attestation The scribe's documentation has been prepared under my direction and personally reviewed by me in its entirety. I confirm that the note above accurately reflects all work, treatment, procedures, and medical decision making performed by me. Departure Information Dispostion Transfer Acute Care Facility Referrals Marnie Miller M.D. (PCP) Patient Instructions [facility] Problem Qualifiers
== END 2016-11-23 23:10 | disposition short-term general hospital (02) ==
LOC: C.EDB 20:53
DX: R10.9 Unspecified abdominal pain (principal); S36.81XA Injury of peritoneum, initial encounter; X58.XXXA Exposure to other specified factors, initial encounter; I95.9 Hypotension, unspecified; I10 Essential (primary) hypertension; E78.5 Hyperlipidemia, unspecified; E03.9 Hypothyroidism, unspecified; Z79.01 Long term (current) use of anticoagulants; Z86.711 Personal history of pulmonary embolism; Z96.651 Presence of right artificial knee joint; Z98.49 Cataract extraction status, unspecified eye; Z98.890 Other specified postprocedural states; Z79.899 Other long term (current) drug therapy; Z91.041 Radiographic dye allergy status; Z80.9 Family history of malignant neoplasm, unspecified; Z82.49 Family history of ischemic heart disease and other diseases of the circulatory system; Z84.1 Family history of disorders of kidney and ureter